=== PATIENT | male | born 1945 | race African-American/Black ===

== ENCOUNTER 2020-06-17 15:21 | Inpatient (IN) | payer OTHER ==
[~2020-06-17] VITALS: Ht 175.3 cm; Wt 108.9 kg
[~2020-06-17 15:21] MED LIST: AMLODIPINE BESY10 MG PO; CARBIDOPA-LEVO1 EAC1 PO; COZAAR 50 MG TA50 MG PO; FLEXERIL PO; FUROSEMIDE 20 M20 M1 PO; HYTRIN 2MG CAPSU2 M1 PO; IBUPROFEN 800800 MG PO; NORCO 5-325 TA1 EACH PO; OMEPRAZOLE 20 M20 MG PO
[2020-06-17 15:22] VITALS: BP 129/100
[2020-06-17 15:41] LABS: ABSOLUTE NEUTROPHILS 3.2 thou/uL (1.4-8.2); BASOPHILS 1.2 % (0.0-2.0); EOSINOPHILS 2.3 % (0.0-3.0); HEMATOCRIT 43.4 % (42.0-52.0); HEMOGLOBIN 14.2 gm/dL (14.0-18.0); LYMPHOCYTES 34.4 % (24.0-44.0); MCH 29.5 pg (26.0-34.0); MCHC 32.7 g/dL (28.0-37.0); MCV 90.4 fL (80.0-100.0); MONOCYTES 10.8 % (1.0-8.0); PLATELET COUNT 254 thou/uL (150-400); POLYS 51.3 % (36.0-66.0); RDW 15.9 % (10.5-14.5); WBC 6.2 thou/uL (4.0-11.0)
[2020-06-17 15:50] LABS: CALCIUM 9.3 mg/dL (8.5-10.1); POTASSIUM 3.1 mmol/L (3.5-5.1)
[2020-06-17 15:56] LABS: ALBUMIN 3.7 g/dL (3.4-5.0); PROTIME 10.4 Seconds (9.3-11.4); TOTAL BILIRUBIN 0.8 mg/dL (0.2-1.0); TOTAL PROTEIN 7.8 g/dL (6.4-8.2)
[2020-06-17] MEDS ORDERED: ADULT ASPIRIN R81 MG PO (15:58)
[2020-06-17] MEDS ORDERED: WARFARIN SODIUM3 MG PO (15:59)
--- NOTE | 2020-06-17 16:25 | NUR ---
ADDISON (SON) PHONE # [phone]
[2020-06-17 20:39] VITALS: BP 125/84
--- NOTE | 2020-06-17 20:44 | NUR ---
TRIED TO CALL REPORT. NO ANSWER.
--- NOTE | 2020-06-17 20:50 | NUR ---
TRIED TO CALL REPORT. NURSE IS UNAVAILABLE.
[2020-06-17 23:51] LABS: URINE BILIRUBIN NEGATIVE (Negative); URINE BLOOD NEGATIVE (Negative); URINE CLARITY CLEAR; URINE COLOR YELLOW; URINE GLUCOSE-RANDOM* NEGATIVE (Negative); URINE KETONES NEGATIVE (Negative); URINE LEUKOCYTES-REFLEX NEGATIVE (Negative); URINE NITRITE-REFLEX NEGATIVE (Negative); URINE PROTEIN (DIPSTICK) NEGATIVE (Negative); URINE UROBILINOGEN 0.2 E.U./dl (0.2-1.0)
--- NOTE | 2020-06-18 05:14 | NUR ---
PT ARRIVED FROM THE ER. A&OX4. ORIENTED TO THE UNIT. ADMISSION DONE CHARTED. EVENING MEDS GIVEN AND BLOOD SUGAR CHECKED NO COVERAGE. HYDROCODONE GIVEN FOR PAIN. PT WEARS BIPAP AT NIGHT. URINAL AT BEDSIDE. FALL PREC IN PLACE AND CALL LIGHT IN REACH WILL CONT WITH POC TILL EOS.
[2020-06-18 06:17] LABS: HEMATOCRIT 41.6 % (42.0-52.0); HEMOGLOBIN 13.4 gm/dL (14.0-18.0); MCH 29.3 pg (26.0-34.0); MCHC 32.2 g/dL (28.0-37.0); MCV 91.1 fL (80.0-100.0); RBC 4.57 mil/uL (4.50-6.00); WBC 6.2 thou/uL (4.0-11.0)
[2020-06-18 06:32] LABS: CALCIUM 8.9 mg/dL (8.5-10.1); CREATININE 0.9 mg/dL (0.7-1.3); MAGNESIUM 2.2 mg/dL (1.8-2.4); POTASSIUM 3.6 mmol/L (3.5-5.1)
[2020-06-18 07:00] VITALS: BP 122/79
[2020-06-18] MEDS ORDERED: ELIQUIS5 MG PO (13:36)
--- NOTE | 2020-06-18 14:04 | NUR ---
ASSESSMENT: CM REVIEWED CHART AND MET WITH PATIENT. PT IS ALERT AND ORIENTED X4. PT IS HERE DUE TO SEVERE BACK PAIN AND ORTHO SURGERY IS CONSULTED. PT REPORTS LIVING IN AN APT ALONE. PT REPORTS HAVING NO STEPS TO ENTER OR ONCE INSIDE. PT REPORTS HE HAS A CANE AND WALKER AT HOME BUT NORMALLY DOES NOT USE THEM. PT REPORTS HE HAS A BIPAP AT HOME HE USES DAILY. PT STATES HE HAS NOT HAD HH IN THE PAST NOR BEEN TO A SNF. CM DISCUSSED ROLE. CM WILL CONTINUE TO FOLLOW TO ASSIST NEEDED.
[2020-06-18 16:00] VITALS: BP 120/88
--- NOTE | 2020-06-18 17:06 | NUR ---
PT IS AOX4, VSS, REPORTS LOWER BACK PAIN THAT RADIATES ON THE RIGHT SIDE OF LEG. PT'S PAIN IS CONTROLLED WITH ORAL AND IV ANALGESIC ORDER. PT HAS BLOOD COMING OUT WHEN HE IS URINATES. DR. TRUONG CALLED AND ORDERED UA. PT CALLS APPROPRIATELY, UP WITH 1 PERSON ASSIST. FALL PRECAUTIONS IN PLACE. BS ARE MONITORED, WILL CONTINUE TO MONITOR.
[2020-06-18 17:11] VITALS: BP 122/79
[2020-06-18 19:10] VITALS: BP 134/94
[2020-06-18 22:58] LABS: URINE BILIRUBIN NEGATIVE (Negative); URINE BLOOD 2+ (Negative); URINE CLARITY CLEAR; URINE COLOR YELLOW; URINE GLUCOSE-RANDOM* NEGATIVE (Negative); URINE KETONES TRACE (Negative); URINE LEUKOCYTES NEGATIVE (Negative); URINE NITRITE NEGATIVE (Negative); URINE PROTEIN (DIPSTICK) NEGATIVE (Negative); URINE SPECIFIC GRAVITY >= 1.030 (1.005-1.035); URINE UROBILINOGEN 0.2 E.U./dl (0.2-1.0)
[2020-06-18 23:21] LABS: BACTERIA 1-9 Few /HPF (None Seen); CASTS None Seen /LPF (None Seen); CRYSTALS None Seen /LPF (None Seen); MUCUS 4-6 Moderate strn/LPF (None Seen); SQUAMOUS 4-10 Moderate /LPF (0-3); URINE WBC 0-5 Rare /HPF (0-5)
[2020-06-19 01:06] LABS: GLYCOHEMOGLOBIN (HGB A1C) 5.7 % (4.8-5.6)
--- NOTE | 2020-06-19 02:18 | NUR ---
ASSESSED AT START OF SHIFT 1900. PT A&OX4. C/O PAIN MANAGE WITH IV AND PO MEDS SEE EMAR. IV INTACT. UA SPECIMEN COLLECTED. URINAL AT BEDSIDE. CPAP AT NIGHT. FALL PREC IN PLACE AND CALL LIGHT AT REACH WILL CONT TO MONITOR.
[2020-06-19 03:28] VITALS: BP 133/101
[2020-06-19 10:25] VITALS: BP 153/92
--- NOTE | 2020-06-19 14:05 | NUR ---
on-going assessment: cm reviewed chart and spoke WITH PT. PT WAS TRYING TO AVOID SURGERY BTU STATES HE HAD A HARD TIME MOVING WITH PHYSICAL THERAPY AND IS NOW CONTEMPLATING SURGERY AND WANTS TO DISCUSS WITH HIS FAMILY. CM WILL AWAIT FOR FUTHER PLANS.
[2020-06-19 14:42] VITALS: BP 153/92
--- NOTE | 2020-06-19 14:45 | NUR ---
PT IS AOX4, VSS, UP WITH ASSIST, UNABLE TO WORK WITH PHYSICAL THERAPY THIS AM D/T PAIN. PT CALLS APPROPRIATELY. PT RECEIVED PO AND IV PAIN ANALGESIC ORDERED FOR PAIN. URINAL AND CALL LIGHT IN REACH. WILL CONTINUE TO MONITOR.
[2020-06-19 16:30] VITALS: BP 113/80
[2020-06-19 19:49] VITALS: BP 128/90
--- NOTE | 2020-06-20 02:41 | NUR ---
ASSESSED AT START OF SHIFT. PT A&OX4. C/O PAIN MANAGED WITH PO AND IV PAIN MEDS. UP WITH ASSIST TO THE BATHROOM URINAL AT BEDSIDE. NEW IV 22G INSERTED IN LEFT HAND. CPAP AT NIGHT. FALL PREC IN PLACE AND CALL LIGHT IN REACH WILL CONT TO MONITOR.
[2020-06-20 03:51] VITALS: BP 116/96
[2020-06-20 07:10] VITALS: BP 120/74
--- NOTE | 2020-06-20 11:12 | NUR ---
REQUESTING PAIN MEDICATION Q 4 HOURS ALTERNATING BETWEEN MORHINE IV AND NEW ORDER FOR [id number]/325 PO PRN WITH VERBALIZED FAIR RELIEF.APPETITE GOOD. USING URINAL PER SELF. LUNGS CTA. BS X4
--- NOTE | 2020-06-20 14:57 | NUR ---
ON-GOING ASSESSMENT: CM REVIEWED CHART AND SPOKE WITH PT. PT REPORTS HE IS STILL IN PAIN AND POSSIBLY CONSIDERING IF HE WANTS TO DO THE SURGERY AND REPORTS HE IS TO TELL THE PHYSICIAN HIS DECISION TOMORROW. CM DISCUSSED IF PT DOES NOT WANT TO PROCEED WITH SURGERY IF HE HAS ENOUGH SUPPORT AT HOME TO HELP ASSIST HIM. HE REPORTS HE MOVES SLOW DUE TO THE PAIN BUT WILL BE FINE. PT LIVES ALONE BUT HAS A CANE A WALKER. HIS SON ADDISON IS ABLE TO RUN [employer] AND BRING MEALS IF NEEDED. CM SPOKE WITH PTS SON TO CONFIRM. CM WILL CONTINUE TO FOLLOW. POSSIBLE DISCHARGE OVER THE WEEKEND PENDING IF PT DECIDES TO PROCEED WITH SURGERY OR NOT. CM WILL CONTINUE TO FOLLOW.
[2020-06-20 16:00] VITALS: BP 121/77
--- NOTE | 2020-06-20 17:43 | NUR ---
EATING WELL 100 PERCENT OF MEALS AND ASKING FOR DOUBLE PORTIONS. BLOOD SUGAR AC MEALS AND IS 162 PRIOR TO PM MEAL-PT STATING "I GUESS NO MORE OJ FOR ME" FULL RANGE AFFECT-TALKATIVE WITH NURSING STAFF. USING URINAL. HAS REMAINED IN BED THROUGHOUT SHIFT-DID WORK BRIEFLY WITH PT.
[2020-06-20 19:10] VITALS: BP 124/71
--- NOTE | 2020-06-21 01:57 | NUR ---
ASSUMED PT CARE AT 1914. PT IS A&OX4. VSS. PT IS ON RA. ACHS - 134 @1913. NO INSULIN WAS GIVEN. PT STATES THAT HE DOES NOT NEED ANYTHING FOR PAIN. PT IS ASLEEP IN HIS ROOM. PT SLEEPING WITH BIPAP ON. DOING HOURLY ROUNDING. WILL CONTINUE TO MONITOR.
[2020-06-21 03:30] VITALS: BP 120/69
[2020-06-21 09:00] VITALS: BP 117/81
--- NOTE | 2020-06-21 14:28 | NUR ---
Assumed care of pt. at 0700. Pt. is calm and cooperative. Pt. complained of moderate pain in his back and was given PRN pain medication. Fall precautions in place.
[2020-06-21 17:30] VITALS: BP 114/70
[2020-06-21 20:35] VITALS: BP 122/70
--- NOTE | 2020-06-22 04:31 | NUR ---
PT LYING IN BED. DENIES NEED FOR PAIN MEDICINE. VOIDING PER URINAL. RESTING COMFORTABLY. NO NEEDS VOICED. CALL LIGHT WITHIN REACH. FREQUENT OBSERVATION.
[2020-06-22 05:14] VITALS: BP 131/82
[2020-06-22 07:00] VITALS: BP 131/85
[2020-06-22] MEDS ORDERED: FLEXERIL PO (07:33)
[2020-06-22] MEDS ORDERED: PERCOCET 10-321 EACH PO (07:34)
[2020-06-22 11:16] VITALS: BP 131/85
--- NOTE | 2020-06-22 14:07 | NUR ---
PT ASSESSED AT START OF SHIFT. DR. TRUONG IN EARLY TO DISCHARGE PT. PLAN TO GO HOME TODAY AND RETURN FOR BACK SURGERY ON TUESDAY. MOVING SOME BETTER BUT STILL HAVING PAIN. WAITING FOR RIDE HOME AT PRESENT TIME.
== END 2020-06-22 16:30 | disposition home or self-care (01) | DRG 552 ==
LOC: ER 15:21 → EROBS 20:21 → 4S 20:21
PROVIDERS: Nurse Practitioner Family; Physician Assistant; ADMIT Internal Medicine; ATTEND Internal Medicine
PROC: 5A09557 Assistance with Respiratory Ventilation, Greater than 96 Consecutive Hours, Continuous Positive Airway Pressure (ICD-10-PCS; principal; 2020-06-17)
DX: M48.061 Spinal stenosis, lumbar region without neurogenic claudication (principal); I48.91 Unspecified atrial fibrillation; I11.0 Hypertensive heart disease with heart failure; I50.9 Heart failure, unspecified; G47.33 Obstructive sleep apnea (adult) (pediatric); E11.9 Type 2 diabetes mellitus without complications; G89.29 Other chronic pain; F32.9 Major depressive disorder, single episode, unspecified; M51.16 Intervertebral disc disorders with radiculopathy, lumbar region; M54.5 Low back pain; K21.9 Gastro-esophageal reflux disease without esophagitis; N40.0 Benign prostatic hyperplasia without lower urinary tract symptoms; Z90.49 Acquired absence of other specified parts of digestive tract; Z88.8 Allergy status to other drugs, medicaments and biological substances; Z79.01 Long term (current) use of anticoagulants; Z79.82 Long term (current) use of aspirin; Z79.899 Other long term (current) drug therapy; Z86.718 Personal history of other venous thrombosis and embolism; Z86.711 Personal history of pulmonary embolism
CPT/HCPCS: 10195

== ENCOUNTER 2020-06-24 14:06 | Inpatient (IN) | payer OTHER ==
[~2020-06-24] VITALS: Ht 175.3 cm; Wt 104.3 kg
--- NOTE | ~2020-06-24 | EMS ---
[facility] [address] [place] [address] EMS Patient Care Report Name: JAIRO GALINDO Room #: 170-24 ADM IN M.R.#: [id number] Admission: 06/24/20 Attend Phys: Rancho Anderson MD Discharge: Date of : 47 Report #: [id number] THIS REPORT FOR: //name// Report Transmitted: 06/24/2020 15:32 EMS Care Summary [place], [place]/[facility] Incident [id number] @ 06/24/2020 13:30 Incident Location [address] [place], [place] [id number] Patient JAIRO GALINDO Male, 74 Years 1945 Patient Address [address] [place] [address] Patient History Back Pain (Chronic), Patient Allergies Lisinopril,Gabapentin, Patient Medications Coumadin, Chief Complaint My sciatica is hurting Disposition Transported No Lights/[place] Reason Falls Transported To [facility] Narrative Called to the scene for a fall. Upon arrival, pt was ZAVALA x 3, lying on the floor on his left side. He said he assisted himself to the ground c/o pain to [facility] [address] [place] [address] EMS Patient Care Report Name: JAIRO GALINDO Room #: 170-24 ADM IN M.R.#: [id number] Admission: 06/24/20 Attend Phys: Rancho Anderson MD Discharge: Date of : 47 Report #: [id number] the right sciatica area. He said he is scheduled for surgery soon. He requests transport to [facility] ER for further eval & tx because he is unable to get around at home well enough to take care of himself. He was assisted to the EMS cot and loaded into the ambulance w/o incident. Vitals obtained. En route: no significant changes. RR to ER. Arrived: pt taken to ER HW #1 and moved to their bed w/o incident. Pt care & report to ER staff. Initial Vitals @13:46P: 75,R: 16,BP: 105/70,Pain: 10/10,GCS: 15,SpO2: 100,Revised Trauma: 12, Assessments @13:55MENTAL:Person Oriented,Time Oriented,Place Oriented,Event Oriented,SKIN:HEENT:LUNG SOUNDS:ABDOMEN:PELVIS//GI:Pelvis GUOther,SHAMIKA,EXTREMITIES:Right Leg: Other,Left Arm: No Abnormalities,Right Arm: No Abnormalities,Left Leg: No Abnormalities,PULSE:Radial: 2+ Normal,NEURO:No Abnormalities, Impression Extremity Pain Procedures @13:58ALS AssessmentResponse: UnchangedSucceeded@13:58StretcherResponse: Unchanged Timeline 13:28,Call Received 13:28,Dispatch Notified 13:30,Dispatched 13:30,En Route 13:36,On Scene 13:37,At Patient 13:46,BP: 105/70 M,PULSE: 75,RR: 16 R,SPO2: 100 Ox,ETCO2: ,BG: ,PAIN: 10,GCS: 15, 13:50,Depart Scene 13:58,ALS Assessment,Response: UnchangedSucceeded, 13:58,Stretcher,Response: Unchanged 14:03,At Destination 14:38,Call Closed Disclaimer v1.1 Copyright 2020 [employer] This EMS Care Summary contains data elements from the applicable legal record (which may be displayed differently). It is designed to provide pertinent information for the following purposes: continuity of care, clinical quality, and state data reporting. The complete legal record is available to ED staff and administrators of the receiving hospital in [employer] Patient Tracker. All data [facility] [address] [place] [address] EMS Patient Care Report Name: JAIRO GALINDO Room #: 170-24 ADM IN M.R.#: [id number] Admission: 06/24/20 Attend Phys: Rancho Anderson MD Discharge: Date of : 47 Report #: [id number] is provided "as is."
[~2020-06-24 14:06] MED LIST changes: +ADULT ASPIRIN R81 MG PO; +ELIQUIS5 MG PO; +PERCOCET 10-321 EACH PO; +WARFARIN SODIUM3 MG PO
[2020-06-24 14:15] VITALS: BP 123/85
[2020-06-24 14:48] LABS: HEMATOCRIT 42.3 % (42.0-52.0); HEMOGLOBIN 13.9 gm/dL (14.0-18.0); MCH 29.8 pg (26.0-34.0); MCHC 32.9 g/dL (28.0-37.0); MCV 90.4 fL (80.0-100.0); RBC 4.69 mil/uL (4.50-6.00); RDW 15.6 % (10.5-14.5); WBC 9.5 thou/uL (4.0-11.0)
[2020-06-24 14:57] LABS: CREATININE 1.1 mg/dL (0.7-1.3); POTASSIUM 3.5 mmol/L (3.5-5.1)
[2020-06-24 15:06] LABS: CALCIUM 8.6 mg/dL (8.5-10.1)
[2020-06-24 17:08] VITALS: BP 123/85
--- NOTE | 2020-06-24 18:07 | NUR ---
PT REPORTED HANDING BLACK JACKET & BLACK BAG TO EMS. BELONGINGS NOT WITH PT ON ARRIVAL. CALLED [facility] REGARDING PT BELONGINGS. [facility] REPORTS THAT PT BELONGINGS WERE LEFT INSIDE PT APARTMENT AND NOT BROUGHT TO HOSPITAL
[2020-06-24 18:44] VITALS: BP 114/73
[2020-06-24 19:27] VITALS: BP 96/68
--- NOTE | 2020-06-24 20:15 | NUR ---
PATIENT ARRIVED ON UNIT ROOM 443 AT 17:38. ALERT XS 4 NO PAIN OR RESP DISTRESS, V.S. 98.2 16 74 114/73 O2 SAT= 98%RA. HAS SURGERY TOMMOROW NPO AT MIDNIGHT. DID ADMISSION HISTORY ASSESSMENT AND ADMISSION EDUCATION NOC SHIFT TO DO SYSTEM ASSESSMENT. DINNER ORDERED AND NPO AT MIDNIGHT. PT PLEASANT AND COOPERATIVE WITH CARE.
[2020-06-25 04:15] VITALS: BP 109/61
--- NOTE | 2020-06-25 05:12 | NUR ---
Assumed pt care at 1900. A/OX4,pleasant. VSS. C/o pain to back/RLE especially with movement medicated per EMAR with some relief reported. Pt reports he's normally independent with ambulation at home w cane/RW but not able to do so recently d/t pain and has fallen frequently. Fall precautions in place, pt agrees to call for help as needed. Voiding per urinal at night. PIV patent on right hand saline locked. Pt has been NPO since midnight. CPAP ordered for pt and in place at this time. Resting quietly w/o distress noted will continue to monitor pt.
[2020-06-25 05:41] LABS: HEMATOCRIT 40.8 % (42.0-52.0); HEMOGLOBIN 13.6 gm/dL (14.0-18.0); MCH 30.3 pg (26.0-34.0); MCHC 33.3 g/dL (28.0-37.0); MCV 90.9 fL (80.0-100.0); RBC 4.48 mil/uL (4.50-6.00); RDW 15.9 % (10.5-14.5); WBC 8.1 thou/uL (4.0-11.0)
[2020-06-25 05:53] LABS: CALCIUM 8.7 mg/dL (8.5-10.1); MAGNESIUM 2.2 mg/dL (1.8-2.4); POTASSIUM 3.6 mmol/L (3.5-5.1)
[2020-06-25 07:07] VITALS: BP 106/74
--- NOTE | 2020-06-25 07:51 | EKG ---
[facility] [place] [address] ELECTROCARDIOGRAM REPORT Name: JAIRO GALINDO Room #: 443- ADM IN M.R.#: [id number] Admission: 06/24/20 Attend Phys: Rancho Anderson MD Discharge: Date of : 47 Report #: [id number] THIS REPORT FOR: cc: [facility] - Clinic physician unknown [facility] - Clinic physician unknown Watson Hammonds MD [facility] ~ THIS REPORT FOR: //name// [facility] ED Test Date: 2020-06-24 Test Time: 16:24:22 Pat Name: JAIRO GALINDO Department: Room: [facility] Gender: M Size Roller Operator: ANNI : 1945 Requested By: Monica Fry Order Number: [id number] MD: Watson Hammonds Measurements Intervals [place] Rate: 65 P: 73 VT: 272 QRS: -27 QRSD: 100 T: -21 QT: 398 QTc: 414 Interpretive Statements Sinus rhythm Prolonged VT interval Borderline left axis deviation Borderline T abnormalities, inferior leads Baseline wander in lead(s) V2 No previous ECG available for comparison Electronically Signed On 06-25-2020 7:51:26 [employer] AIDE TEACHER by Watson Hammonds [email or web address] <ELECTRONICALLY SIGNED> By: Watson Hammonds MD, [facility] 06/25/20 0751 1624 1624 Watson Hammonds MD, [facility] /EPI
--- NOTE | 2020-06-25 07:53 | NUR ---
Pt UNDERGOING SURGERY TODAY; THEREFORE, NEED NEW O.T. ORDERS POST-OP.
--- NOTE | 2020-06-25 08:54 | NUR ---
ASSESSMENT: CM REVIEWED CHART AND SPOKE WITH PATIENT. PT IS ALERT AND ORIENTED X4. PT REPORTS LIVING IN AN APT ALONE. PT HAS NO STEPS TO ENTER OR ONCE INSIDE. PT REPORTS HE HAS A CANE AND WALKER AT HOME WELL A BATH BENCH. PT REPORTS THAT HE HAS NOT HAD HH IN THE PAST OR BEEN TO A SNF. PT REPORTS HE HAS SOME FAMILY/FRIENDS THAT CAN ASSIST HIM IF NEEDED. PT IS TO HAVE SURGERY AND PENDING PT/OT CM WILL ASSIST TO FOLLOW.
--- NOTE | 2020-06-25 09:58 | NUR ---
PT CARE ASSUMED AT 0700. A&Ox4. ACHS WITH NO COVERAGE NEEDED THIS AM. NPO SINCE MIDNIGHT. NO EDEMA PRESENT AT ASSESSMENT ON L. R. EXTREMITY. SCD'S IN PLACE. HOSPITAL BIPAP AT BEDSITE. PT USES URINAL. IV PATENT, FLUSHED, WITH NO REDNESS OR EDEMA, SALINE LOCKED. MORNING MEDICATIONS HELD PER NPO PROTOCOL. PT LEFT FLOOR AT [address] [facility]. PREOP REPORT GIVEN. FALL PROTOCOL IN PLACE. CALL LIGHT IN REACH. WILL CONTINUE TO MONITOR. CLOTHES, GLASSES, WALLET IN NIGHTSTAND WHILE OFF THE FLOOR.
[2020-06-25 15:39] VITALS: BP 106/74
[2020-06-25 20:34] VITALS: BP 110/73
--- NOTE | 2020-06-26 02:11 | NUR ---
ASSUMED PT CARE AT 1900.PT AXO WITH FORGETFULNESS.PT DENIED N/V SO FAR. PT OBSERVED NOT TO BE USING HIS OPERATIONS TECH PUMP FOR HIS PAIN RATES PAIN AT 8.PT EDUCATED ON HOW TO USE HIS OPERATIONS TECH PUMP.HOURLY ROUNDING MAINTAINED. PT STATED THAT THE OPERATIONS TECH PUMP IS PROVIDING ADEQUATE PAIN RELIEF DURING FERQ CHECK.DRSG ON HIS BACK INTACT.PT SLEEPIN WITH HIS CPAP AT THIS TIME.CAPNOGRAPHY IN PLACE DUE TO OPERATIONS TECH PUMP USE.SCD/SRINI IN PLACE.PT SLEEPING COMFORTABLY ON HIS BED AT THIS TIME.PT ABLE TO REPOSITION SELF TO COMFORTABLE POSITIONS.CALL LIGHT WITHIN REACH.
[2020-06-26 05:31] VITALS: BP 101/66
[2020-06-26 05:33] LABS: ABSOLUTE NEUTROPHILS 10.7 thou/uL (1.4-8.2); BASOPHILS 0.4 % (0.0-2.0); HEMATOCRIT 39.9 % (42.0-52.0); HEMOGLOBIN 12.9 gm/dL (14.0-18.0); MCH 29.5 pg (26.0-34.0); MCHC 32.5 g/dL (28.0-37.0); MCV 90.8 fL (80.0-100.0); MONOCYTES 5.5 % (1.0-8.0); PLATELET COUNT 261 thou/uL (150-400); POLYS 86.1 % (36.0-66.0); RBC 4.39 mil/uL (4.50-6.00); WBC 12.4 thou/uL (4.0-11.0)
[2020-06-26 05:48] LABS: CALCIUM 8.9 mg/dL (8.5-10.1); CREATININE 1.1 mg/dL (0.7-1.3); POTASSIUM 4.2 mmol/L (3.5-5.1)
[2020-06-26 07:13] VITALS: BP 119/81
--- NOTE | 2020-06-26 09:49 | NUR ---
PT CARE ASSUMED AT 0700. A&Ox4. PAIN CONTINUES TO HAVE PAIN AT A PAIN LEVEL 9 WITH NO RELIEF. CARTER INFORMED. AWAITNG FURHTER ORDERS. IV PATENT WITH NO REDNESS OR EDEMA, SALINE LOCKED. ACHS WITH NO COVERAGE NEEDED. SLEEP APNEA WITH HOSPITAL CPAP IN THE ROOM. KNEE HIGH SRINI HOSES/ SCD'S IN PLACE. URINAL AT BEDSITE. FALL PROTOCOL IN PLACE. CALL LIGHT IN REACH. SURGERY SITE DRESSING DRY AND INTACT. WILL CONTINUE TO MONITOR.
[2020-06-26] MEDS ORDERED: ELIQUIS5 MG PO (13:54)
[2020-06-26] MEDS ORDERED: METFORMIN HCL500 MG PO (13:55)
[2020-06-26] MEDS ORDERED: LIPITOR 40 MG T40 M1 PO (13:55)
[2020-06-26] MEDS ORDERED: LYRICA100 MG PO (13:56)
[2020-06-26] MEDS ORDERED: DITROPAN XL10 M1 PO (13:56)
[2020-06-26] MEDS ORDERED: ZANAFLEX4 M2 PO (13:57)
--- NOTE | 2020-06-26 14:07 | NUR ---
ON-GOING ASSESSMENT: CM REVIEWED CHART AND SPOKE WITH BEDSIDE RN. PT IS STILL HAVING SEVERE PAIN REQUIRING IV MEDICATION. PT IS CONTUING TO WORK WITH THERAPIES. PT IS HOPING HE WILL BE ABLE TO RETURN HOME DUE PENDING DUE TO HIS PAIN. CM DISCUSSED CM CAN SEND REFERRAL FOR HH FOR PATIENT BUT HE STATES HE WANTS TO WAIT TO SEE HOW HE DOES WHEN HE IS CLOSER TO DISCHARGE. CM WILL CONTINUE TO FOLLOW TO ASSIST NEEDED.
--- NOTE | 2020-06-26 15:05 | O ---
[facility] [place] [address] OPERATIVE REPORT Name: JAIRO GALINDO Room #: 443-P ADM IN M.R.#: [id number] Admission: 06/24/20 Attend Phys: Rancho Anderson MD Discharge: Date of : 47 Report #: [id number] THIS REPORT FOR: cc: [facility] - Clinic physician unknown [facility] - Clinic physician unknown Josh Boykin MD ~ CC: [facility] unknown Rancho Anderson DATE OF SERVICE: 06/25/2020 PREPROCEDURAL DIAGNOSES: Intraforaminal far lateral and paracentral disk herniation L5-S1. Radiculopathy. POSTPROCEDURAL DIAGNOSES: Intraforaminal far lateral and paracentral disk herniation L5-S1. Radiculopathy. PROCEDURE: Right paracentral intracanal HNP excision and right L4-L5 far lateral disk excision. SURGEON: Josh Boykin M.D. LEAN MANUFACTURING COORDINATOR SURGEON: Kalina Orozco. ANESTHESIA: General via endotracheal tube. INDICATIONS: The patient has had intractable back and right leg pain. He is known to have a large intraforaminal disk herniation with far lateral component and the patient was scheduled for both an intracanal approach and an extrapedicular approach to try and clear his foramen. The patient understood the risks of surgery to be , DVT, pulmonary embolism, paraplegia, loss of bowel and bladder function, loss of sexual function, possibility of bleeding, bleeding requiring transfusion, transfusion attendant risks of AIDS and hepatitis infection, instability, the need for revision, prolonged hospital stay, dural leak, spinal headache, infection and again he requested we proceed. DESCRIPTION OF PROCEDURE: The patient was brought to the operating room, administered general anesthesia via endotracheal tube. Lower extremities were treated with SRINI hose and intermittent compression stockings. He received perioperative antibiotics. He was positioned on the Alvaro table in the prone position with all bony prominences padded appropriately. Care was taken to ensure the shoulders not abducted more than 90 degrees, the elbows flexed more than 90 degrees and there was no undue pressure on the cubital or carpal canals. The patient's incision was fashioned after being fluoroed. We defatted the back with alcohol, visualized under fluoroscopy and marked the pedicles of the inferior aspect of L4 to the superior aspect of S1, noting that the patient has [address] [address] OPERATIVE REPORT Name: JAIRO GALINDO Room #: 443-P [facility] IN .R.#: [id number] Admission: 06/24/20 Attend Phys: Rancho Anderson MD Discharge: Date of : 47 Report #: [id number] transitional vertebrae. We then began by attempting to enter his canal after a subperiosteal exposure in setting of our retractors. There was so much overgrowth and deformity of the affected facet on the right that it actually extended from the transverse process of the vertebrae below to the transverse process of the vertebrae above. It was overgrown. It was probably 2-2.5 times the normal size of the facet and making the procedure extremely difficult. There was no remnant or even ability to visualize what would have been normal pars or normal intersection of the transverse process and due to the patient's size, the depths of the wound was extraordinarily. The intracanal approach had take down the midline to be able to enter the canal and remove the thickened ligamentum flavum from the right side. We traced this out until we were lateral to the nerve root and then we were able to perform the diskectomy and performed medial portion intraforaminal decompression using the upbiting pituitary from across the table. We then palpated and tried to push any disk into the disk space and then moved. When this was complete and there was no further disk being removed from intracanal, moved for the extraforaminal approach. With the extraforaminal approach, we took down probably half of the facet. If I took it down anymore, it would make it unstable and I think it barely got me to the normal pars. Again, it was so distorted from arthritic change and facet hypertrophy and degenerative adaptive change, it was difficult to tell any normal landmarks. I did take down the facet and then removed bone until I could palpate the pedicle and then dissected through the fat and found the nerve root and then went to where I believe the disk would be and found rimming osteophytes. We were able to decompress the root in its course, but honestly was unclear whether due to the width and size of the patient's lamina, unclear whether I removed all the intraforaminal component of disk material. The patient not wanting to manipulate the nerve root anymore, unable to take down any more facet without making him unstable and needing a fusion, we stopped and we are going to see if this provided him adequate relief. If not, the patient would be later scheduled for a decompression or complete excision of the facet and fusion. The patient tolerated this portion of the procedure well. We copiously irrigated with a liter of antibiotic-containing solution, placed a mL of Depo-Medrol on the nerve root and a pledget of thrombin-soaked Gelfoam laterally and a fat graft medially. Bone edges were bone waxed and we closed the deep fascial layer with 0 Ethibond in [id number] interrupted fashion after a thorough irrigation with a liter of antibiotic-containing solution and then closed the deep fascial layer with 0 Ethibond in [id number] and then the deep subcu with 0 Vicryl, superficial subcu 2-0 Vicryl and the skin with stainless steel floyd, dressed with Xeroform, sterile dressing, sponges and a bioclusive. The patient tolerated the procedure well, no technical [facility] [address] [place] [address] OPERATIVE REPORT Name: JAIRO GALINDO Room #: 443-P [facility] IN ..#: [id number] Admission: 06/24/20 Attend Phys: Rancho Anderson MD Discharge: Date of : 47 Report #: [id number] misadventures and other than the challenges from the extraordinary overgrowth and deformity, there were no other issues. <ELECTRONICALLY SIGNED> By: Josh Boykin MD 06/26/20 1505 1353 1433 Josh Boykin MD /nt
[2020-06-26 15:51] VITALS: BP 95/42
[2020-06-26 19:28] VITALS: BP 90/57
[2020-06-26 23:41] VITALS: BP 114/71
[2020-06-27] VITALS (13 sets, daily range): BP systolic 102–131; BP diastolic 57–87
[2020-06-27 05:06] LABS: ABSOLUTE NEUTROPHILS 6.3 thou/uL (1.4-8.2); BASOPHILS 0.9 % (0.0-2.0); EOSINOPHILS 1.9 % (0.0-3.0); HEMATOCRIT 39.4 % (42.0-52.0); HEMOGLOBIN 12.9 gm/dL (14.0-18.0); LYMPHOCYTES 19.6 % (24.0-44.0); MCH 29.9 pg (26.0-34.0); MCHC 32.7 g/dL (28.0-37.0); MCV 91.7 fL (80.0-100.0); MONOCYTES 7.5 % (1.0-8.0); PLATELET COUNT 212 thou/uL (150-400); POLYS 70.1 % (36.0-66.0); RDW 16.5 % (10.5-14.5)
[2020-06-27 06:04] LABS: CREATININE 1.2 mg/dL (0.7-1.3)
--- NOTE | 2020-06-27 07:00 | NUR ---
PATIENT IS HAVING A LUMBAR FUSION TODAY, WILL NEED POST OP ORDERS.
--- NOTE | 2020-06-27 07:14 | NUR ---
ASSUMED PT CARE AROUND 1930. AXOX3. ANXIOUS. LOW BP REPORTED TO AERIAL INSTALLER PROVIDER CONTRACTING CONSULTANT WITH NNO AT THIS TIME. KEPT NPO POST [place] FOR SURGERY IN AM. LEFT AROUND 0620 ACCOMPANIED BY CORRECTIONAL GUARD. NO S/S ACUTE DISTRESS NOTED OR REPORTED UPON DEPARTURE. VERBAL REPORT GIVEN TO DAY RN.
--- NOTE | 2020-06-27 13:49 | O ---
[facility] [place] [address] OPERATIVE REPORT Name: JAIRO GALINDO Room #: 443-P ADM IN M.R.#: [id number] Admission: 06/24/20 Attend Phys: Rancho Anderson MD Discharge: Date of : 47 Report #: [id number] THIS REPORT FOR: cc: [facility] physician unknown [facility] physician unknown Josh Boykin MD ~ CC: [facility] unknown Rancho Anderson DATE OF SERVICE: 06/27/2020 PREPROCEDURAL DIAGNOSES: Spondylolisthesis, L4-L5; zftwrfam-[id number] neural foraminal stenosis, L4-L5; herniated disk, L5-S1, right paracentral; herniated disk, right L5-S1, intraforaminal; herniated disk, right L5-S1 far lateral. POSTPROCEDURAL DIAGNOSES: Spondylolisthesis, L4-L5; efuqxyvw-rn-flepru neural foraminal stenosis, L4-L5; herniated disk, L5-S1, right paracentral; herniated disk, right L5-S1, intraforaminal; herniated disk, right L5-S1 far lateral. PROCEDURES: 1. Posterior segmental instrumentation, L4-S1. 2. Posterior posterolateral fusion, L4-L5. 3. Posterior posterolateral fusion, L5-S1. 4. Laminectomy with partial facetectomy and neural foraminotomy, L4; laminectomy with partial facetectomy and neural foraminotomy, L5; laminectomy with partial facetectomy and neural foraminotomy, S1; far lateral extrapedicular approach, L5-S1 for herniated disk; complete takedown of the lamina on the right at L5-S1 to allow complete exposure of the L5 nerve root and removal of intraforaminal disk herniation; paracentral right L5-S1 diskectomy for impingement on the S1 nerve root. Local bone, fluoroscopy, synthetic bone. SURGEON: Josh Boykin M.D. DIRECTOR OF PUBLIC SAFETY SURGEON: GABBY Elias ANESTHESIA: General via endotracheal tube. INDICATIONS: The patient has had intractable back and right leg pain. The leg pain is in a multi root distribution affecting the lower extremity. He states he is fine as long as he does not move. The patient has had a previous attempted decompression with paracentral and far lateral approach that was unsuccessful. The patient was scheduled for the aforementioned surgery after having returned from surgery with the same leg pain. The patient understood the risks of surgery to be , DVT, pulmonary embolism, paraplegia, loss of bowel and bladder function, loss of sexual function, possibility of bleeding, bleeding requiring transfusion, transfusion attendant risks of AIDS and hepatitis [address] [address] OPERATIVE REPORT Name: JAIRO GALINDO Room #: 443-P ADM IN M.R.#: [id number] Admission: 06/24/20 Attend Phys: Rancho Anderson MD Discharge: Date of : 47 Report #: [id number] infection, instability, the need for revision, prolonged hospital stay, dural leak, spinal headache, infection and again he requested we proceed. DESCRIPTION OF PROCEDURE: The patient was brought to the operating room and administered general anesthesia via endotracheal tube. Lower extremities were treated with SRINI hose and intermittent compression stockings. The patient received perioperative antibiotic. He was positioned on the Alvaro table after having a Pisano placed. The patient was positioned in the prone position with all bony prominences padded appropriately. Care was taken to ensure the shoulders not abducted more than 90 degrees, the elbows flexed more than 90 degrees. There was no undue pressure on the cubital or carpal canals. The area of the anterior superior iliac spine was well padded to protect the lateral femoral cutaneous nerve. Hips and knees were well padded and there was no pressure on the dorsum of the feet. The patient's low back was defatted with alcohol, visualized under fluoroscopy and the pedicles of L4, L5 and S1 were marked on the patient's back for surgical reference. The previous incision was used with the extension cephalad to allow instrumentation at the L4 unstable spondylolisthetic level. The skin after sterile prep and drape was infiltrated with 0.5% Marcaine, 1:200,000 epinephrine. The incision was made, carried down to deep fascia. At the level of deep fascia, the permanent sutures were removed. The incision was extended to allow instrumentation of L4, L5 and S1. We performed a subperiosteal exposure of the L4, L5 and S1 levels. We maintained the facet capsules at L3-L4. Facet capsules were sacrificed at L4-L5 and L5-S1. We then exposed the transverse processes of L4, L5 and S1, decorticated the base of the transverse process in line with the lateral facet, inserted a pedicle probe, drilled it to a depth of 40 mm in the direction dictated by an x-ray that had been obtained under fluoroscopy in the lateral plane. The clamps had been affixed to the tips of the spinous processes perpendicular to the floor that gave us a relative pedicle direction. We decorticated the base of the transverse process in line with the lateral facet, inserted the pedicle probe, drilled it to a depth of 40 mm, withdrew it, palpated the hole to ensure cortical integrity and when that was assured, bone wax was placed and a metallic marker. This was performed bilaterally at L4, L5 and S1. AP and lateral fluoroscopy confirmed excellent position of our markers within the pedicles. Pedicles were sequentially removed, the holes were tapped. Holes after being tapped were palpated again with a ball tip probe to ensure cortical integrity in all 4 quadrants. Once this was assured, we decorticated posterolaterally and performed a fusion of L4-L5 and L5-S1. This was accomplished with synthetic bone that had been reconstituted with the patient's own vertebral body blood rich in stem cells obtained with a Lukens trap and suction during the pedicle screw hole placement. The synthetic bone placed. We inserted the screws, measured, cut and contoured rods, locked them into place and set the locking caps to appropriate tightness. We moved to the opposite side and performed exactly the same procedure. Tapped the hole, palpated to ensure cortical integrity, decorticated and placed a posterolateral fusion at L4-L5 and L5-S1, inserted the screws, measured, cut and contoured rods, locked [facility] [address] [place] [address] OPERATIVE REPORT Name: JAIRO GALINDO Room #: 443-P [facility] IN .R.#: [id number] Admission: 06/24/20 Attend Phys: Rancho Anderson MD Discharge: Date of : 47 Report #: [id number], set with the torque wrench to appropriate tightness. Final AP and lateral of the instrumentation showed excellent position, a well aligned spine and the appropriate levels were fused. The instrumentation showed all instrumentation to be of appropriate length, trajectory and to be well placed. We then turned our attention to the decompression. We performed laminectomy and total facetectomy, explored the entire lamina of L5, having been removed we were able to follow and trace out the L5 nerve root and found huge amounts of disk material pinning it against the inferior aspect of the L5 pedicle and nerve root was purplish, contused and appeared "angry." Disk material was pushed into the disk space and removed with the pituitary. A Hayley dental elevator was used and a nerve hook was used to deliver the disk material, intraforaminal disk material and a far lateral disk material was removed also. When complete, the nerve root was completely unencumbered throughout the neural foramen and was clearly free beyond the pedicle, which had been the superior articular process of S1, which had been removed. It was completely free in its course. We then checked intracanal and again removed disk material beneath the S1 root where it seemed deviated. When complete, we performed both an intraforaminal far lateral and intracanal disk herniation excision. We then copiously irrigated with a liter of antibiotic-containing solution. We drilled out the facets just prior to the irrigation. We packed them with the patient's own bone representing local bone graft harvest. Bone from the laminectomy had been meticulously cleaned, morcellized and saved and was packed in the inner facet region. Thrombin-soaked Gelfoam was placed over the spinal canal and the naked dura. We placed a transverse connector, torqued it to appropriate tightness, obtained meticulous hemostasis, placed a deep drain, placed a gram of vancomycin in the wound and closed the deep fascial layer with 0 Ethibond in becfos-rx-jmqag interrupted fashion, deep subQ with 0 Vicryl, superficial subQ with 2-0 Vicryl, skin with a subcuticular 3-0. The patient then had benzoin, Steri-Strips, Xeroform, sterile dressing, sponges and a bioclusive applied. The patient tolerated the procedure well. There were no technical misadventures. The final blood loss was 250 mL. I believe the final urine output was 650 mL. There was no specimen. No complications and the patient was physiologically stable throughout being transported to recovery room for closer neurovascular observation, continue prophylactic antibiotic and serial neurovascular exams to be discharged to the floor when stable. <ELECTRONICALLY SIGNED> By: Josh Boykin MD 06/27/20 1349 [id number] Josh Boykin MD /nt
--- NOTE | 2020-06-27 16:44 | NUR ---
assumed care at 1400. pt is a&o x4. pt came to back from surgery and he came in drowsy. pt complains of pain and was taught how to use AIRCRAFT SHIPPING CHECKER pump. Pt is using AIRCRAFT SHIPPING CHECKER pump wisely. Pt is on clear liquids. pt denies n/v. SRINI/ SCD hose are in place. VSS are stable after surgyer. fall precaution. call light within reach. RR is WNL. Will continue to monitor pain. Right and L Hand IV are free of redness or swelling. Pt denies any discomfort.
[2020-06-28 03:30] VITALS: BP 100/64
--- NOTE | 2020-06-28 03:41 | NUR ---
ASSUMED PT CARE AT 1900.PT NEEDS CONSTANT REMINDER TO USE HIS DISABILITIES CAREGIVER PUMP HE WAS OBSERVED MOANING IN HIS ROOM.PT STATED THAT THE DISABILITIES CAREGIVER PUMP US PROVIDING RELIEF.PT DECLINED REPOSITIONING SO FAR STATED THAT HE CAN REPOSITION HIMSELF TO A COMFORTABLE POSITION.DRSG TO HIS BACK INTACT.MIN DRAINAGE NOTED FROM HIS HEMOVAC.SCD AND SRINI HOSE IN PLACE TO HIS BLE.CAPNOGRAPHY IN PLACE.PT ENCOURAGED TO USE HIS IS WHILE AWAKE.PT SLEEPING ON HIS BED AT THIS TIME.CALL LIGHT WITHIN REACH.
[2020-06-28 05:25] LABS: ABSOLUTE NEUTROPHILS 8.1 thou/uL (1.4-8.2); BASOPHILS 0.6 % (0.0-2.0); EOSINOPHILS 0.2 % (0.0-3.0); HEMATOCRIT 37.7 % (42.0-52.0); HEMOGLOBIN 12.5 gm/dL (14.0-18.0); LYMPHOCYTES 14.4 % (24.0-44.0); MCH 30.2 pg (26.0-34.0); MCHC 33.2 g/dL (28.0-37.0); MCV 91.2 fL (80.0-100.0); MONOCYTES 7.8 % (1.0-8.0); PLATELET COUNT 203 thou/uL (150-400); RBC 4.14 mil/uL (4.50-6.00); RDW 16.4 % (10.5-14.5); WBC 10.5 thou/uL (4.0-11.0)
[2020-06-28 05:28] LABS: CALCIUM 8.5 mg/dL (8.5-10.1); CREATININE 1.2 mg/dL (0.7-1.3); POTASSIUM 3.9 mmol/L (3.5-5.1)
[2020-06-28 07:31] VITALS: BP 110/69
--- NOTE | 2020-06-28 12:14 | NUR ---
ASSUMED CARE AT 0700. PT IS MORE ALERT AND ORIENTED X 4. PT IS COMPLAINIG OF PAIN /. MORPHINE WAS GIVEN AROUND 7 AM AND THERE WAS NO PAIN RELIEF. PT WAS GIVEN OXYCODONE 2 TABLETS AND NOTICE A SLIGHT PAIN RELIEF. PT COMPLAINS OF SLIGHT SOA. PT O2 LEVEL IS WITHIN NORMAL RANGE. BOB IS INTACT AND CLEAR URINE. HEMOVAC DRAIN IS INTACT AND BARELY DRAINING, SO MAYBE A POSSIBLE D/C ON HEMOVAC DRAIN. PT BLOOD GLUCOSE IS WNL SO NO INSULIN NEEDED. D/C R. IV ON THE RIGHT HAND DUE TO INFILTRATION. CURRENTLY ONLY USING IV ON THE LEFT HAND AND WORKS FINE. PT WORKED WITH PT/OT. TOLERATE WELL. PT IS STILL CONSTIPATED BUT IT COULD BE DUE TO MEDICATIONS OR AFTER SURGERY. PT UNDERSTOODS. WILL CONTINUE TO MONITOR PT BREATHING AND O2 LEVEL.
[2020-06-28 15:20] VITALS: BP 94/64
[2020-06-28 19:34] VITALS: BP 111/52
--- NOTE | 2020-06-29 02:09 | NUR ---
PT ALERT/CONFUSED AND FORGETFUL.PT'S BED ALARM WENT OFF,ON GETTING TO THE ROOM,PT WAS OBSERVED TRYING TO GET OUT OF BED WITHOUT ASSIST.PT EDUCATED TO USE CALL LIGHT FOR HELP.PT C/O PAIN ON HIS BACK,MANAGED WITH PO AND IV MED.PT RE[OSITINED WHILE IN BED PER HIS REQUEST HE REF MOST OF THE TIME.DRSG ON HIS BACK INTACT WITH MIN DRAINAGE.BOB CATH IN PLACE WITH YELLOW URINE NOTED IN THE BAG.CALL LIGHT WITHIN REACH.HOURLY ROUNDS MAINTAINED.
[2020-06-29 03:44] VITALS: BP 96/52
[2020-06-29 08:04] LABS: ABSOLUTE NEUTROPHILS 9.6 thou/uL (1.4-8.2); BASOPHILS 0.4 % (0.0-2.0); EOSINOPHILS 1.7 % (0.0-3.0); HEMATOCRIT 36.2 % (42.0-52.0); HEMOGLOBIN 11.7 gm/dL (14.0-18.0); LYMPHOCYTES 13.1 % (24.0-44.0); MCH 29.5 pg (26.0-34.0); MCHC 32.4 g/dL (28.0-37.0); MCV 91.1 fL (80.0-100.0); MONOCYTES 7.8 % (1.0-8.0); PLATELET COUNT 202 thou/uL (150-400); RBC 3.97 mil/uL (4.50-6.00); RDW 16.3 % (10.5-14.5); WBC 12.4 thou/uL (4.0-11.0)
[2020-06-29 08:21] LABS: CALCIUM 8.6 mg/dL (8.5-10.1); POTASSIUM 3.7 mmol/L (3.5-5.1)
--- NOTE | 2020-06-29 17:56 | NUR ---
PT IS AOX4, VSS, PAIN MANAGED WITH IV AND ORAL PAIN ANALGESIC. PT MOANS AND REPORTS HE IS IN CONSTANT PAIN. IV IN LEFT FA/SL. SCDS, TEDS ON. DRESSING REMAINS CDI. PAULINO IS PATENT, CALL LIGHT IN REACH. WILL CONTINUE TO MONITOR.
[2020-06-29 19:17] VITALS: BP 97/59
[2020-06-29 19:43] VITALS: BP 123/63
[2020-06-30 05:03] VITALS: BP 108/73
[2020-06-30 06:09] LABS: ABSOLUTE NEUTROPHILS 9.9 thou/uL (1.4-8.2); BASOPHILS 0.3 % (0.0-2.0); EOSINOPHILS 1.6 % (0.0-3.0); HEMATOCRIT 36.5 % (42.0-52.0); HEMOGLOBIN 11.9 gm/dL (14.0-18.0); LYMPHOCYTES 11.1 % (24.0-44.0); MCH 29.6 pg (26.0-34.0); MCHC 32.7 g/dL (28.0-37.0); MCV 90.5 fL (80.0-100.0); MONOCYTES 6.5 % (1.0-8.0); PLATELET COUNT 222 thou/uL (150-400); POLYS 80.5 % (36.0-66.0); RBC 4.04 mil/uL (4.50-6.00); RDW 15.8 % (10.5-14.5); WBC 12.2 thou/uL (4.0-11.0)
[2020-06-30 06:11] LABS: CALCIUM 8.7 mg/dL (8.5-10.1); CREATININE 1.2 mg/dL (0.7-1.3)
--- NOTE | 2020-06-30 06:28 | NUR ---
ASSUMED PT CARE AT 1915. PT IS A&OX4. VSS. PT COMPLAINS OF PAIN AT A 10. PAIN MEDICATION ADMINISTERED. IV IS IN PT'S LEFT HAND SALINE LOCKED. PT USES CPAP AT NIGHT. PT CALLS OUT APPROPRIATELY. PT HAS A BOB IN PLACE. DRESSING IS INTACT WITH DRIED DRAINAGE. PT IS RESTING IN HIS ROOM. WILL CONTINUE TO MONITOR.
[2020-06-30 08:30] VITALS: BP 90/60
--- NOTE | 2020-06-30 10:06 | NUR ---
ASSUMED CARE AT 0700. A&O X4. PT STATES THAT HE HASNT HAD ANY BM. NIGHT NURSE EXPLAINED THAT THERE IS A LITTLE OF BLOOD ON DRESSING. WILL CHANGE DRESSING DURING SHIFT. SCD/TOSE HOSE ARE INTACT. PAIN COMPLAINS OF PAIN AND WAS GIVEN OXYCODONE AROUND 0600. BP IS SLIGHTLY LOW. 90/60, THEREFORE I HOLD BP MEDICATIONS. OTHER VS ARE WNL. WILL ASSESS VS AGAIN BEFORE GIVING ANOTHER SET OF PAIN MEDICATION. CALL LIGHT WITHIN REACH. DIET IS CARB CONTROL DIABETIC. WAS GIVEN CEFAZOLIN AND FLUSH WITH NORMAL SALINE. IV IS SALINE LOCK. IV SHOWS NO SIGNS OF REDNESS OR SWELLING. IV IS INTACT. FALL PRECAUTION. BOB IS INTACT.
[2020-06-30 14:50] VITALS: BP 114/78
--- NOTE | 2020-06-30 14:56 | NUR ---
YVON BARTHOLOMEW, CONTACTED THIS CM TO DISCUSS ARU. CM DISCUSSED ARU OPTION W/PT. PT DECLINED, STATED THERAPY MAKES "PAIN WORSE." CM F/U RE; HH. PT STILL INDECISIVE, "WANT TO SEE HOW THINGS GO." CM TO CONT TO FOLLOW.
[2020-06-30 15:24] VITALS: BP 117/80
[2020-06-30 19:23] VITALS: BP 101/64
[2020-07-01 04:04] VITALS: BP 93/65
--- NOTE | 2020-07-01 04:23 | NUR ---
ASSESSMENT COMPLETED. PT IS ALERT AND ORIENTED.REQUIRES HELP TO REPOSITION FROM SIDE TO SIDE WHILE IN BED DUE TO THE IMMENSE PAIN. ALTERNATING BTW OXYCODONE AND MORPHINE. PT DENIES ANY NAUSEA, HS BLOOD SUGAR WAS LOW(67), AFTER TAKING SOME YOGHURT AND POPSICLE, WENT UP TO THE 80S. SPOT CHECK THIS AM WAS ABOVE 100. PT USES BIBAP AT NOC,ON THE CONT PULSE OX, I NOTED THAT HE HAD TAKEN BIPAP OFF AT AROUND 3AM STATING HE DID NOT WANT IT ON. HE IS SATTING WELL ABOVE 95%. PT IS AFEBRILE. SCDS IN PLACE. HE REPORTS NUMBNESS AND TINGLING TO BOTH LEGS AND HANDS. HE TENDS TO LEAN TOWARDS THE RIGHT, AND REPORTS SOME MORE SORENESS TO THE RIGHT.BOB TO D/D WITH DARK YELLOW URINE.DRSG TO LOWER BACK WAS SO SATURATED AT THE START OF SHIFT, SEROSANGUINOUS OUTPUT NOTED-DRSG CHANGED X 1 SO FAR.CONTINUES ON IV ABTS.CALL LIGHT WITHIN REACH. WILL CONTINUE WITH POC TILL EOS.
[2020-07-01 06:02] LABS: ABSOLUTE NEUTROPHILS 7.4 thou/uL (1.4-8.2); BASOPHILS 0.5 % (0.0-2.0); EOSINOPHILS 2.5 % (0.0-3.0); HEMATOCRIT 34.2 % (42.0-52.0); HEMOGLOBIN 11.3 gm/dL (14.0-18.0); MCH 30.3 pg (26.0-34.0); MCV 91.9 fL (80.0-100.0); PLATELET COUNT 206 thou/uL (150-400); RBC 3.72 mil/uL (4.50-6.00); RDW 16.3 % (10.5-14.5); WBC 9.7 thou/uL (4.0-11.0)
[2020-07-01 06:39] LABS: POTASSIUM 3.8 mmol/L (3.5-5.1)
[2020-07-01 07:31] VITALS: BP 100/69
[2020-07-01 11:06] VITALS: BP 114/69
--- NOTE | 2020-07-01 11:14 | NUR ---
Patient is open to attend acute rehab to gain more physical strength. Goal is to get their pain down to a more tolerable level, and attend rehab to regain lost strength.
--- NOTE | 2020-07-01 11:35 | NUR ---
Assumed care of pt at 0700. Pt a&ox4. Prn pain meds administered per pt request. Blood sugar stable this am. Dressing on back saturated. New dressing ordered. Will change when new dressing reaches the floor. Pisano catheter in place. Up to chair with physical therapy. IV antibiotic discontinued. Call light within reach. Fall precautions in place. Will continue to monitor.
--- NOTE | 2020-07-01 11:45 | NUR ---
Assess for length of stay. S/P lumbar fusion. Hx diabetes, BG controlled, A1C 5.7. Eating 75-100% of most meals. No wt change. Low nutrition risk
--- NOTE | 2020-07-01 12:10 | NUR ---
I have reviewed the student documentation.
[2020-07-01 15:25] VITALS: BP 141/98
--- NOTE | 2020-07-01 16:08 | NUR ---
Pt working with therapy this am and agreeable to acute rehab. [facility] check and transfer beader evaluated the pt and they can accept pending insurance approval. Pt started on steriods to help with inflamation/pain. [facility] confirmed they have submited for ins auth.
[2020-07-01 20:00] VITALS: BP 142/98
--- NOTE | 2020-07-02 03:27 | NUR ---
ASSUMED PT CARE AT 1900.PT'S BG WAS IN THE MID 50'S.PT REF TO EAT BUT DRANK SOME APPLEJUICE.PT LATER RECEIVED GLUCOSE GEL AND TABS SINCE HE REF TO EAT.BG CAME UP TO 97.PT SLEPT WITH BIPAP FOR A COUPLE OF HOURS,LATER TOOK IT OF AT 0200 BECAUSE HE STATED THAT HE COULDN'T BREATHE.PT WAS PUT ON 2L/NC.DRSG ON HIS BACK WITH DRIED BLOOD.PT ABLE TO MOVE HIMSELF WHILE IN BED.CALL LIGHT WITHIN REACH.
[2020-07-02 05:38] VITALS: BP 114/76
[2020-07-02 06:11] LABS: ABSOLUTE NEUTROPHILS 5.4 thou/uL (1.4-8.2); BASOPHILS 0.6 % (0.0-2.0); EOSINOPHILS 2.9 % (0.0-3.0); HEMATOCRIT 35.2 % (42.0-52.0); HEMOGLOBIN 11.6 gm/dL (14.0-18.0); LYMPHOCYTES 18.8 % (24.0-44.0); MCH 30.3 pg (26.0-34.0); MCHC 32.9 g/dL (28.0-37.0); MONOCYTES 6.2 % (1.0-8.0); PLATELET COUNT 260 thou/uL (150-400); POLYS 71.5 % (36.0-66.0); RBC 3.82 mil/uL (4.50-6.00); RDW 16.5 % (10.5-14.5); WBC 7.6 thou/uL (4.0-11.0)
[2020-07-02 06:23] LABS: CALCIUM 8.8 mg/dL (8.5-10.1); CREATININE 1.1 mg/dL (0.7-1.3); POTASSIUM 4.5 mmol/L (3.5-5.1)
[2020-07-02 07:18] VITALS: BP 122/79
--- NOTE | 2020-07-02 11:34 | NUR ---
ON-GOING ASSESSMENT: UMA REVIEWED A VM FROM [facility] STATING PT IS BEING DENIED INPATIENT ACUTE REHAB BUT THERE IS AN OPTION FOR A PEER TO PEER IF PHYSICIAN REQUEST. CM NOTIFIED ATTENDING WHO REPORTS HE WILL DO A PEER TO PEER. CM CONTACTED [facility] AT TO SCHEDULE PEER TO PEER FOR DR. TRUONG FOR ACUTE REHAB AND IT IS SCHEDULED FOR TODAY 07/02 AT 1345. CM NOT[address] DR[address] TRUONG THAT DR. WINTERS WILL BE CONTACTING HIM THEN. CM ALSO PROVIDED PATIENT WITH A [facility] SNF LIST TO REVIEW INCASE THE DENIAL IS UPHELD. CM WILL CONTINUE TO FOLLOW AND AWAIT DETERMINATION OF PEER TO PEER.
[2020-07-02 15:11] VITALS: BP 110/67
--- NOTE | 2020-07-02 18:00 | NUR ---
PATIENT HAS WORKED WITH THERAPY TODAY. TAKES MEDS ORDERED. DRESSING CHANGED TO BACK. PT TO DISCHARGE TO [address] [place] [address].
--- NOTE | 2020-07-02 19:29 | NUR ---
DURING WALKING ROUNDS PATIENT WAS DISCOVERED WITH WET SHEETS. PT WAS INCONTINENT OF BLADDER BED LINENS AND PATIENT CLEANED NEW BEDDING ON BED. PATIENT HAD REMAINED CONTINENT ON DAY SHIFT USED URINAL AND WALKED TO BATHROOM WITH THERAPY. PT HAS GOOD APPETITE BLOOD SUGARS CHECKED AND NO S/S INSULIN GIVEN. PT IS PLEASANT AND COOPERATIVE WITH CARE.
[2020-07-02 19:30] VITALS: BP 117/80
--- NOTE | 2020-07-03 02:23 | NUR ---
ASSESSMENT COMPLETED, PT IS ALERT AND ORIENTED. USES URINAL AND AT TIMES IS INCONTINENT. DRSG TO BACK HAS SOME DRIED DRAINAGE. SCDS IN PLACE. PT TAKING MEDS OKAY. OXYCODONE GIVEN WITH RELIEF OF PAIN.WILL CONTINUE WITH POC.
[2020-07-03 03:37] VITALS: BP 111/63
[2020-07-03 06:08] LABS: ABSOLUTE NEUTROPHILS 9.3 thou/uL (1.4-8.2); BASOPHILS 0.2 % (0.0-2.0); EOSINOPHILS 0.1 % (0.0-3.0); HEMATOCRIT 37.4 % (42.0-52.0); HEMOGLOBIN 12.6 gm/dL (14.0-18.0); LYMPHOCYTES 11.3 % (24.0-44.0); MCH 30.4 pg (26.0-34.0); MCHC 33.7 g/dL (28.0-37.0); MCV 90.3 fL (80.0-100.0); MONOCYTES 3.7 % (1.0-8.0); POLYS 84.7 % (36.0-66.0); RBC 4.14 mil/uL (4.50-6.00); RDW 15.9 % (10.5-14.5); WBC 10.9 thou/uL (4.0-11.0)
[2020-07-03 06:15] LABS: PLATELET COUNT 347 thou/uL (150-400)
[2020-07-03 06:24] LABS: CALCIUM 9.4 mg/dL (8.5-10.1); CREATININE 1.1 mg/dL (0.7-1.3); POTASSIUM 4.2 mmol/L (3.5-5.1)
--- NOTE | 2020-07-03 08:41 | NUR ---
PATIENT TAKEN TO MRI AT THIS TIME. ADMITTED WITH DX OF COMPRESSION FX.
[2020-07-03 08:45] VITALS: BP 117/86
[2020-07-03] MEDS ORDERED: SENNA-TIME S T1 EACH PO (09:33)
[2020-07-03] MEDS ORDERED: MIRALAX17 GM PO (09:33)
[2020-07-03] MEDS ORDERED: ROBAXIN 750 MG750 MG PO (09:33)
[2020-07-03] MEDS ORDERED: HEPARIN SO5000 UNIT/ SUBQ (09:33)
[2020-07-03] MEDS ORDERED: PERCOCET 10-321 EACH PO (09:34)
--- NOTE | 2020-07-03 10:53 | NUR ---
PATIENT DISCHARGING FROM THIS UNIT IS BEING ADMITTED TO [facility] ROOM 505. DRESSING CHANGED TO LOWER BACK PATIENT GIVEN PRN PAIN MED REQUESTED. REPORT GIVEN TO [facility] NURSE. CARTER CHANNEL OPENER OUTSOLES FOR DR ROMERO HERE TO SEE PATIENT. PT LEFT UNIT AT THIS TIME VIA W/C
--- NOTE | 2020-07-03 13:13 | NUR ---
ON-GOING ASSESSMENT: PT HAS ORDERS TO DISCHARGE TODAY TO [facility]. [facility] STATES THEY CAN ACCEPT PT TODAY. PT REPORTS NO FURTHER NEEDS FROM CM.
== END 2020-07-03 11:07 | DRG 460 ==
LOC: ER 14:06 → 4S 15:50 → EROBS 15:50 → 4S 17:20
PROVIDERS: Hospitalist; Student in an Organized Health Care Education/Training Program; ADMIT Internal Medicine; ATTEND Internal Medicine
PROC: 0SB40ZZ Excision of Lumbosacral Disc, Open Approach (ICD-10-PCS; principal; 2020-06-25)
PROC: 5A09357 Assistance with Respiratory Ventilation, Less than 24 Consecutive Hours, Continuous Positive Airway Pressure (ICD-10-PCS; principal; 2020-06-25)
PROC: 0SG00J1 Fusion of Lumbar Vertebral Joint with Synthetic Substitute, Posterior Approach, Posterior Column, Open Approach (ICD-10-PCS; 2020-06-25)
PROC: 5A09357 Assistance with Respiratory Ventilation, Less than 24 Consecutive Hours, Continuous Positive Airway Pressure (ICD-10-PCS; 2020-06-26)
PROC: 0SG3071 Fusion of Lumbosacral Joint with Autologous Tissue Substitute, Posterior Approach, Posterior Column, Open Approach (ICD-10-PCS; 2020-06-27)
PROC: 00NY0ZZ Release Lumbar Spinal Cord, Open Approach (ICD-10-PCS; 2020-06-27)
PROC: 01NB0ZZ Release Lumbar Nerve, Open Approach (ICD-10-PCS; 2020-06-27)
PROC: 01NR0ZZ Release Sacral Nerve, Open Approach (ICD-10-PCS; 2020-06-27)
PROC: 5A09357 Assistance with Respiratory Ventilation, Less than 24 Consecutive Hours, Continuous Positive Airway Pressure (ICD-10-PCS; 2020-06-27)
PROC: 5A09457 Assistance with Respiratory Ventilation, 24-96 Consecutive Hours, Continuous Positive Airway Pressure (ICD-10-PCS; 2020-06-28)
DX: M51.17 Intervertebral disc disorders with radiculopathy, lumbosacral region (principal); M48.061 Spinal stenosis, lumbar region without neurogenic claudication; M43.16 Spondylolisthesis, lumbar region; I10 Essential (primary) hypertension; K21.9 Gastro-esophageal reflux disease without esophagitis; E11.9 Type 2 diabetes mellitus without complications; I48.91 Unspecified atrial fibrillation; G47.33 Obstructive sleep apnea (adult) (pediatric); Z60.2 Problems related to living alone; F32.9 Major depressive disorder, single episode, unspecified; K59.00 Constipation, unspecified; R20.1 Hypoesthesia of skin; I95.81 Postprocedural hypotension; Z20.828 Contact with and (suspected) exposure to other viral communicable diseases; Z90.49 Acquired absence of other specified parts of digestive tract; Z88.8 Allergy status to other drugs, medicaments and biological substances; Z86.711 Personal history of pulmonary embolism; Z86.718 Personal history of other venous thrombosis and embolism; Z79.82 Long term (current) use of aspirin; Z79.899 Other long term (current) drug therapy
CPT/HCPCS: 10195; 50010; 50101; 50402; 50850; 50923; 51878; 56524; 56526; 56529; 58247; 58248; 58251; 5828; 58299; 58300; 62110; 62900; 65131; 70005

== ENCOUNTER 2020-07-03 10:00 | Inpatient (IN) | payer OTHER ==
[~2020-07-03] VITALS: Ht 152.4 cm; Wt 108.9 kg
--- NOTE | ~2020-07-03 | H ---
[facility] [place] [address] HISTORY AND PHYSICAL Name: JAIRO GALINDO Room #: 505-P [facility] IN M.R.#: [id number] Admission: 07/03/20 Attend Phys: Ahmet Molina MD Discharge: Date of : 47 Report #: [id number] THIS REPORT FOR: cc: [facility] - Clinic physician unknown [facility] - Clinic physician unknown Ahmet Molina MD ~ CC: Ahmet Molina [facility] unknown DATE OF SERVICE: 07/03/2020 HISTORY OF PRESENT ILLNESS: The patient has been admitted with intractable back pain radiating down both legs. He underwent surgery on 06/25/2020 with lumbar spine HNP excision and was worse post-surgery and he does return to the OR on 06/27/2020 for lumbar fusion due to moderate to severe spinal stenosis and herniated disk. He had some postoperative hypotension, requiring IV fluids. He was given an oral Medrol pack along with Lyrica and Robaxin. He was admitted for acute in-hospital inpatient rehabilitation. He was in no distress. PHYSICAL EXAMINATION: GENERAL: He was pleasant. He is on nasal cannula O2, 2 liters. VITAL SIGNS: Stable. Last recorded blood pressure 142/90, pulse 60, temperature 97.4. HEENT: Facies are symmetric. CHEST: Sounded clear to auscultation. CARDIAC: Regular rate and rhythm. ABDOMEN: Bowel sounds positive, nontender. MUSCULOSKELETAL: Back incision is dressed. As far as his manual muscle testing, is a little weaker of that right lower extremity with some discomfort with testing. I would grade his hip flexion at probably 3+/5 with ankle dorsiflexion 3+/5 secondary to pain. Better strength in the left more of a grade 4+/5. He is sensitive to touch, especially the right lower extremity more than the left lower extremity. He has been min to mod assist coming to stand and has taken a few steps with a walker prior to his rehabilitation admission. ASSESSMENT: 1. Lumbar radiculopathy with lower extremity weakness. 2. Lumbar herniated disk with spinal stenosis, status post fusion with surgery on 06/25/2020 and 06/27/2020. 3. Postoperative hypotension. 4. Diabetes mellitus type 2. 5. History of pulmonary embolism, on long-term anticoagulation. 6. Obstructive sleep apnea. 7. History of atrial fibrillation, now in normal sinus rhythm. PLAN: The patient is involved in the inpatient rehabilitation program[place] [address] HISTORY AND PHYSICAL Name: JAIRO GALINDO Room #: 505-P [facility] IN [facility]#: [id number] Admission: 07/03/20 Attend Phys: Ahmet Molina MD Discharge: Date of : 47 Report #: [id number] to maximize his functional independence, so he can hopefully return back to his prior living situation. The admissions consultant physicians will continue to follow during his acute hospitalization. By: 1506 Ahmet Molina MD /VANDANA
--- NOTE | ~2020-07-03 | PLAN ---
[facility] [place] [address] REHAB UNIT PLAN OF CARE Name: JAIRO GALINDO Room #: 505-P ADM IN M.R.#: [id number] Admission: 07/03/20 Attend Phys: Ahmet Molina MD Discharge: Date of : 47 Report #: [id number] THIS REPORT FOR: //name// CC: Ahmet Molina [facility] unknown DATE OF SERVICE: 07/05/2020 PROGRESS NOTE/OVERALL PLAN OF CARE SUBJECTIVE: The patient was seen back in followup. He was seen earlier. He was in no noted distress. Temperature 36.3, pulse 59, respirations 16, blood pressure 132/83. Back pain appears improved with the Medrol Dosepak. Wound care has been consulted. He has been working in therapies with sit to stand, mod assist. He was able to ambulate 50 feet, max assist of 2 with a front-wheeled walker. In occupational therapy, lower body dressing is min assist, upper body dressing supervision. Speech therapy has been involved with moderately impaired memory with functional deficits noted to be more moderate to severely impaired. ASSESSMENT: 1. Lumbar radiculopathy with lower extremity weakness. 2. Lumbar herniated disk with spinal stenosis, status post fusion surgery on . 3. Postop hypotension. 4. Diabetes mellitus type 2. 5. History of pulmonary embolism, on long-term anticoagulation. 6. Obstructive sleep apnea. 7. History of atrial fibrillation since in normal sinus rhythm. PLAN: The overall plan of care is based on the preadmission screen and information garnered from therapy assessments. 1. Estimated length of stay is probably going to be 14 days and likely longer if warranted. 2. Medical prognosis is reasonably good. 3. Anticipated interventions includes the interdisciplinary acute inpatient rehabilitation program. 4. Anticipated functional outcomes would be for the patient to become modified independent with transfers, mobility, ADLs, so that he can be up and moving, better. 5. Discharge destination would be back to the home setting. He does live in an apartment alone, but does not have any steps. 6. Expected therapy by discipline includes PT, OT and speech 1 hour per day each five days a week throughout the duration of the acute inpatient rehabilitation stay. [address] [address] REHAB UNIT PLAN OF CARE Name: JOSIEJAIRO Ellen Room #: 505-P [facility] IN [facility].#: [id number] Admission: 07/03/20 Attend Phys: Ahmet Molina MD Discharge: Date of : 47 Report #: [id number] ADDENDUM: The patient's prognosis for significant practical improvement within a reasonable period of time appears good. Given the patient's complex medical condition and risk of further medical complications, rehabilitation services could not be safely provided at a lower level of care such as a shelter facility. The patient has involvement with the hospitalist service. Wound care spinal surgery neuropsychology. By: [id number] Ahmet Molina MD /VANDANA
[~2020-07-03 10:00] MED LIST changes: +DITROPAN XL10 M1 PO; +HEPARIN SO5000 UNIT/ SUBQ; +LIPITOR 40 MG T40 M1 PO; +LYRICA100 MG PO; +METFORMIN HCL500 MG PO; +MIRALAX17 GM PO; +ROBAXIN 750 MG750 MG PO; +SENNA-TIME S T1 EACH PO; +ZANAFLEX4 M2 PO
--- NOTE | 2020-07-03 12:10 | NUR ---
chart review. jon is new to acute rehab this morning. cm visited with him via phone call. education on dcp, team meetings and transition of care. noted he lives alone in apartment, no steps, has cane and walker that is not being used prior to hospital. uses bipap. per jon " independent when feeling good, apartment on ground level. son helps run errands and get food if needed. 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 still drive and manage own medication. no rehab or hh in past"/jon. will cont following as needed for dc needs.
[2020-07-03 12:50] VITALS: BP 92/63
--- NOTE | 2020-07-03 13:04 | NUR ---
74 YEAR OLD MALE ARRIVES VIA WC TO UNIT FROM RM 443 ADMITTED TO ORTHO WITH LUMBAR RADIICULOPATHY WITH LE WEAKNESS-LUMBAR FUSION 06/25,06/27. AQUACEL DRESSING TO LOW BACK SLIGHTLY RIGHT OF MIDLINE-C/D/I. SALINE LOCK RIGHT FOREARM. DOES REPORT LOW BACK PAIN RATED A 10/10 AT APPROX. 1215 WHEN ASSESSED BY THIS RN. FLUX PLANT OPERATOR NOTIFIED AND ORDERS RECEIVED. SCHEDULED LYRICA GIVEN ALONG WITH METHOCARBINAL SCHEDULED. BS AT 1200 118. ADMIT VS/HT WEIGHT OBTAINED-ORIENTED TO ROOM/UNIT-LUNCH PROVIDED.
--- NOTE | 2020-07-03 15:35 | NUR ---
REPORTING LOW BACK PAIN RATED A 10/10 AT 1430-REQUESTED AND RECEIVED PERCOCET 2 TABS PO PRN. AT APPROX 1530 BED EXIT ALARM SOUNDED AND PT WAS FOUND STANDING AT SIDE OF BED-GESTURING WILDLY AND YELLING "SOMEONE WAS SHOT'-THEY SHOT HIM" AFTER APPROX 2-3 MINUTES STATES "OH I THINK I HAD A BAD DREAM" "MUST BE THE ADRENALINE"
[2020-07-03 19:50] VITALS: BP 109/73
--- NOTE | 2020-07-04 03:19 | NUR ---
Assumed pt's care this pm shift. Pt alert and oriented x4. Forgetful. VSS on RA. CPAP @ HS. PRN pain med given this shift. Pt voids via urinal. Sleeping well so far. Dressing to back C/D/I. RFA IV SL. Fall precaution in place. Call light within reach. Will continue to monitor.
[2020-07-04 06:27] LABS: HEMOGLOBIN 12.1 gm/dL (14.0-18.0); MCH 30.1 pg (26.0-34.0); MCHC 32.7 g/dL (28.0-37.0); MCV 91.9 fL (80.0-100.0); RBC 4.03 mil/uL (4.50-6.00); RDW 16.4 % (10.5-14.5)
[2020-07-04 06:51] LABS: CALCIUM 9.4 mg/dL (8.5-10.1); CREATININE 1.2 mg/dL (0.7-1.3)
[2020-07-04 07:27] VITALS: BP 142/106
[2020-07-04 09:50] VITALS: BP 142/90
--- NOTE | 2020-07-04 11:58 | NUR ---
Nutrition: Pt transferred to rehab unit S/P lumbar fusion. Consulted due to wound which is surgical incision. Hx DM but BG well controlled. Eating 75-100% most meals on carb controlled diet. No weight change. Low nutrition risk.
[2020-07-04 13:31] LABS: FOLIC ACID 7.5 ng/mL (8.6-58.9); TSH 0.372 uIU/mL (0.358-3.740)
--- NOTE | 2020-07-04 13:38 | NUR ---
ASSUMED CARES AT 0700. PT LETHARGIC AND SLEEPY THIS AM, UNABLE TO EAT BREAKFAST OR DO THERAPY R/T LETHARGY. BP 142/106, NORVASC ADMINISTERED ORDERED, BP RECHECKED AFTER 1HR 142/90. CHEST XRAY ORDERED. PT WOKE-UP AT 1000 AND PARTICIPATED WELL IN ALL THERAPIES THEN. ATE 100% OF HIS LUNCH. SURGICAL DRESSING ON LOWER BACK FELL OFF, STERI STRIPS PLACE ALONG THE INCISION AND [place] DRESSING, PROVIDER NOTIFIED. PT DENIES PAIN AT THIS TIME. ALL OTHER VITALS STABLE. EDEMA NOTED ON LLE, EXTREMITIES ELEVATED. SRINI HOSE OFF FOR SKIN CARE WITH RESUME AFTER. UP WITH SBA, GB AND WALKER AND TOLERATED WELL. Q1H VISUAL CHECKS. CALL LIGHT WITHIN REACH. FALL PRECAUTIONS IN PLACE.
[2020-07-04 19:35] VITALS: BP 112/79
--- NOTE | 2020-07-04 21:22 | NUR ---
ASSUMED CARE AND REPORT RECEIVED NAVEED 190. PT ALERT AND STATED THAT PAIN IS UNDER GREAT CONTROL DUE TO THE STEROIDS. HE STATED, "I FEEL SO MUCH BETTER NOW!" PT HAS NOT REQUIRED NARCOTIC PAIN MEDS PER REPORT FOR MORE THAN 12 HOURS. VISUALIZED INCISION DRESSING TO LUMBER SPINE AND NOTED SLIGHT SHADOW OF SEROUS DRAINAGE. REPORT GIVEN TO Suad DICKINSON RN ABOUT AN HOUR LATER, AND NOTED THAT THE DRESSING IS INTACT, WITH SLIGHT DEPENDENT DRAINAGE.
[2020-07-05 00:46] LABS: URINE BILIRUBIN NEGATIVE (Negative); URINE BLOOD NEGATIVE (Negative); URINE CLARITY CLEAR; URINE COLOR YELLOW; URINE GLUCOSE-RANDOM* NEGATIVE (Negative); URINE KETONES NEGATIVE (Negative); URINE LEUKOCYTES-REFLEX NEGATIVE (Negative); URINE NITRITE-REFLEX NEGATIVE (Negative); URINE PROTEIN (DIPSTICK) NEGATIVE (Negative)
--- NOTE | 2020-07-05 03:45 | NUR ---
DOING WELL WITH CPAP AND 02 BLEED-IN AFTER INITIALLY HAVING TROUBLE FALLING ASLEEP. VOIDED WITH SUGGESTION FOR UA AT HS. PAIN PILL FOR MILD BACK PAIN AT HS. BACK DRESSING STERI-STRIPS INTACT, SEROSANGINOUS DRAINAGE, REINFORCED WITH ABD AT HS
[2020-07-05 08:00] VITALS: BP 132/83
--- NOTE | 2020-07-05 12:26 | NUR ---
ASSUMED CARE AT 0700. PATIENT IS ALERT AND ORIENTED,BUT HAVING A LOT OF BACK PAIN. PATIENT LUNGS ARE CLEAR. ABD IS SOFT WITH BSX4. PATIENT IS VOIDING PER URINAL RONNY COLORED URINE. UP IN CHAIR FOR MEALS. FALL AND SAFETY PROTOCOLS IN PLACE. C/O SEVERE PAIN IN HIS LOWER BACK. MEDICATED WITH PRN PAIN MED. DRESING CHANGED TO HIS LOWER BACK PER PROTOCOL. CONTINUES TO PROGRESS SLOWLY TOWARDS D/C GOALS. WILL CONTINUE TO MONITER.
[2020-07-05 19:47] VITALS: BP 118/87
--- NOTE | 2020-07-06 00:57 | NUR ---
PT ASSESSMENT COMPLETED AND VSS. MEDS GIVEN ORDERED AND WELL TOLERATED. FALL PRECAUTIONS IN PLACE. PRN PAIN MEDICATION WORKING WELL. DSG ON BACK DRY AND INTACT. PT ITCHING ON BACK NOT WHERE INCISION IS LOCATED. PEELED OFF LOTS OF OLD TAPE AND APPLIED CREAM TO BACK. PT STATES THAT HE IS FEELING MUCH BETTER. SCDS ON. VOIDING MODERATE AMOUNT OF DARK YELLOW URINE PER URINAL. SLEEPING ON AND OFF. WILL CONTINUE TO MONITOR FREQUENTLY.
[2020-07-06 09:10] VITALS: BP 115/81
[2020-07-06 11:37] VITALS: BP 101/67
--- NOTE | 2020-07-06 14:12 | NUR ---
ASSUMED CARES AT 0700. PT AWAKE, ALERT AND ORIENTED*4. C/O PAIN LOWER BACK, /10, PAIN MEDICATION ADMINISTERED NEEDED. BP LOW THIS AM, BP LOWERING MEDS WITHHELD, RETOOK BP AFTER 15MINS STABLE. PT ENOCURAGED TO INCREASE FLUID INTAKE. DRESSING ON INCISION ON LOWER BACK CHANGED, INCISION REMAINS INTACT, MOD AMOUNT OF SEROUSANGUINOUS DRAINAGE NOTED. PT UP WITH SBA, GB AND TOLERATED WELL. Q1H VISUAL CHECKS. CALL LIGHT WITHIN REACH. FALL PRECAUTIONS IN PLACE.
[2020-07-06 20:00] VITALS: BP 129/97
--- NOTE | 2020-07-07 03:00 | NUR ---
C/O PAIN FROM TOSSING AND TURNING DUE TO ITCHING. BENADRYL HAS EASED THE ITCH, SECOND PAIN PILL OFFERED AND DECLINED. TOLERATING CPAP WITH O2 2L BLEED-IN. DRESSING ESSENTIALLY DRY
[2020-07-07 08:00] VITALS: BP 116/89
--- NOTE | 2020-07-07 14:11 | NUR ---
ASSUMED CARES AT 0700. PT AWAKE, ALERT AND ORIENTED*4. VITALS REMAIN STABLE. C/O BACK AND RIGHT KNEE PAIN, PAIN MEDICATION ADMINISTERED NEEDED. LOWER BACK INCISION CLEANED AND DRESSING CHANGED, LARGE AMOUNT OF SEROUSSANGUINOUS DRAINAGE NOTED. PT C/O ITCHINESS ON BACK, LOTION APPLIED ON BACK. PT UP WITH SBA, GB AND TOLERATED WELL. Q1H VISUAL CHECKS. CALL LIGHT WITHIN REACH. FALL PRECAUTIONS IN PLACE.
[2020-07-07 19:20] VITALS: BP 120/81
--- NOTE | 2020-07-08 02:08 | NUR ---
DENIES NEED FOR PAIN MED THIS EVENING, BUT IS HAVING TROUBLE WITH ITCHY BACK AGAIN TONKERRY,STATES BENADRYL HELPFUL AND HAS SOLVED THE PROBLEM AGAIN. CPAP ON WITHOUT OXYGEN AND NO DESAT ALARM AT ALL SINCE PLACED ABOUT 90 MINUTES AGO
[2020-07-08 05:36] LABS: ABSOLUTE NEUTROPHILS 6.2 thou/uL (1.4-8.2); BASOPHILS 0.5 % (0.0-2.0); EOSINOPHILS 4.6 % (0.0-3.0); HEMATOCRIT 35.9 % (42.0-52.0); HEMOGLOBIN 11.7 gm/dL (14.0-18.0); LYMPHOCYTES 22.8 % (24.0-44.0); MCH 29.8 pg (26.0-34.0); MCHC 32.5 g/dL (28.0-37.0); MCV 91.8 fL (80.0-100.0); MONOCYTES 7.1 % (1.0-8.0); PLATELET COUNT 425 thou/uL (150-400); RBC 3.91 mil/uL (4.50-6.00); RDW 16.3 % (10.5-14.5); WBC 9.6 thou/uL (4.0-11.0)
[2020-07-08 05:48] LABS: CALCIUM 9.4 mg/dL (8.5-10.1); CREATININE 1.1 mg/dL (0.7-1.3); MAGNESIUM 1.9 mg/dL (1.8-2.4); POTASSIUM 3.9 mmol/L (3.5-5.1)
[2020-07-08 07:50] VITALS: BP 115/83
[2020-07-08 09:10] VITALS: BP 115/83
--- NOTE | 2020-07-08 13:06 | NUR ---
team meeting, reccomendation: pain, and wound care following. needs assistance with bils and pills. no driving till cleared from pcp and surgeron. dc [facility] ( pt, ot, st, nursing).
--- NOTE | 2020-07-08 18:26 | NUR ---
Alert and orientated X 4. Stated pain 10/10 that started in R foot and extended up through R back and into R neck and jaw. Denies nausea, no diaphoresis. Pain med given with quick response, decreased to a 6 and then to 0. Calm, cooperative and compliant. Breath sounds clear and diminished in lower lobes. Reg HR auscultated. Color pink with brisk capillary refill and palpable peripheral pulses. Yellow urine per urinal. Active bowel sounds over soft, rounded abdomen. Independent with eating. Drsg to mid back dry and intact, site with several steristrips, no s/o infection. Dressed with ABD and paper tape. Reported back pain 8-9 to lower back, down to 1 with perocet. Watching TV without s/o distress.
[2020-07-08 19:37] VITALS: BP 113/76
--- NOTE | 2020-07-09 01:27 | NUR ---
Assumed care of patient this pm shift. Patient in good spirits, calm and cooperative. Patient describes pain as 9/10. Oxy given per order. Pain in back tolerable after medication. Breath sounds clear, bowel sounds present. Dressing to mid back dry and in tact. Call light within reach. Falls precautions in place. Patient alert and oriented x4. Patient takes medications whole with thin fluids. No signs of acute distress. We will continue to monitor per hospital policy.
[2020-07-09 07:24] VITALS: BP 114/80
--- NOTE | 2020-07-09 08:10 | NUR ---
ASSUMED CARE AT 0700. PATIENT IS ALERT AND ORIENTED X4. PATIENT CHIN'S, SKIDDER OPERATOR ARE EQUAL. LUNGS ARE CLEAR AND DEMINISHED. ABD IS SOFT WITH BSX4. PATIENT DRESSING ON HIS BACK IS DRY AND INTACT. DRESSING CHANGED ACCORDING TO PROTOCOLS. C/O ITCHING ON HIS LEFT ABD AREA, & BACK. BENADRYL GIVEN BY NIGHT NURSE. FALL AND SAFETY PROTOCOLS IN PLACE. DENIES PAIN AT THIS TIME. WILL CONTINUE TO MONITER.
--- NOTE | 2020-07-09 13:37 | NUR ---
cm tried calling brother adriano and son dillan. no answer, cm left message requesting call back .
[2020-07-09 19:30] VITALS: BP 132/82
--- NOTE | 2020-07-10 01:38 | NUR ---
DRY DRESSING TO LOW BACK. PATIENT HAS INTERMITTENT PAIN WITH ONCE UNABLE TO GET TO URINAL QUICK ENOUGH WITH PAIN FLARE-UP. NOW USING BIPAP WITH O2 SAT STAYING ABOVE 96% WITHOUT SUPPEMENTAL OXYGEN. PLEASANT
[2020-07-10 08:08] VITALS: BP 90/60
[2020-07-10] MEDS ORDERED: FOLIC ACID1 MG PO ×2 (11:16)
[2020-07-10] MEDS ORDERED: SENNA-TIME S T1 EACH PO ×2 (11:16)
[2020-07-10] MEDS ORDERED: MIRALAX17 GM PO ×2 (11:16)
[2020-07-10] MEDS ORDERED: VITAMIN D21250 MC1 PO (11:16)
[2020-07-10] MEDS ORDERED: ROBAXIN 750 MG750 MG PO ×2 (11:16)
[2020-07-10] MEDS ORDERED: VITAMIN B-12500 MCG PO ×2 (11:16)
--- NOTE | 2020-07-10 12:56 | HC ---
[facility] [place] [address] CONSULTATION Name: JAIRO GALINDO Room #: 505-P [facility] IN M.R.#: [id number] Admission: 07/03/20 Attend Phys: Ahmet Molina MD Discharge: Date of : 47 Report #: [id number] THIS REPORT FOR: cc: [facility] - Clinic physician unknown [facility] - Clinic physician unknown Blaine Argueta PhD ~ DATE OF SERVICE: 07/05/2020 BEHAVIORAL STATUS EXAM ATTENDING PHYSICIAN: Ahmet Molina MD EAR MUFF ASSEMBLER: Blaine Argueta, PhD CLINICAL PRESENTATION: The patient is a 74-year-old male admitted to the rehabilitation unit for treatment of intractable back pain radiating down both legs. The patient underwent surgery on 06/25/2020 for the lumbar spine excision. He had to return to the operating room on 06/27/2020 for lumbar fusion due to [id number] spinal stenosis and a herniated disc. The patient had postoperative hypotension and required IV fluids. He was given an oral Medrol David along with Lyrica and Robaxin. His assessment on admission to the rehab unit is a lumbar radiculopathy with lower extremity weakness, lumbar herniated with spinal stenosis, status post fusion with surgery on 06/25/2020 and 06/27/2020, postoperative hypotension, diabetes mellitus type 2, history of pulmonary embolism, on long-term anticoagulation, obstructive sleep apnea, history of atrial fibrillation, now in normal sinus rhythm. A complete description of his medical condition and history can be found in his medical record. Neuropsychological consultation was requested to provide assistance in the assessment of cognitive and emotional status and provide recommendations and services. Prior to this most recent medical event, he reports having fallen and unable to stand. He reported having pretty severe leg pain. While he fell to the floor, he may have hit his head, but was not sure. The patient lives independently. His in 2011. He has 4 children in the [place] area. The patient is a college graduate. He reports having played football and box while in high school. He is a [place] . The patient was supervised with the [employer] until his shelter. TECHNIQUES UTILIZED: Clinical interview, review of medical records, staff consultation and behavioral observation, mini mental status exam 2 standard version, clock drawing and letter category fluency. [address] [address] CONSULTATION Name: JAIRO GALINDO Room #: 505-P [facility] IN .R.#: [id number] Admission: 07/03/20 Attend Phys: Ahmet Molina MD Discharge: Date of : 46 Report #: [id number] EXAMINATION FINDINGS: The patient was alert and cooperative with the assessment. He accurately described events surrounding his admission. The patient does not report symptoms of cognitive disorder. He indicates having a decreased appetite. He does not report problems with sleep, anxiety, depression, or history of alcohol/drug abuse. Performance on the MMSE 2 brief version was in the mild range of impairment with a raw score 12/16 and a T score of 26. He was 3/3 for initial registration, 4/5 for orientation to time and 5/[address]. He was 0/3 for immediate recall of 3 items after a brief time delay and distraction. His performance improved on the standard version of the MMSE 2 to a raw score of 25/30, with a T score 38, percentile rank at 12. The patient was 4/5 for serial sevens, 2/2 for naming, 1/1 for repetition, 3/3 for comprehension. He could read and follow a single command and write a sentence. The patient was able to accurately draw a simple geometric design. Clock drawing was within normal limits. Performance in letter category fluency suggests impaired category fluency. Letter fluency was in the low average range with a T score of 38 and percentile rank of 12, which may be in the subtle to mildly impaired area. Category fluency was extremely low with a raw score of 20 and a T score of 22, which is at the first percentile. Overall, total fluency was a T score 28 and percentile rank of 1. The patient is presenting with deficits in immediate recall, and verbal fluency, which often suggest executive dysfunction. DIAGNOSTIC IMPRESSION: Mild neurocognitive disorder, unspecified, without behavior disorder. RECOMMENDATIONS: The patient may need increased assistance upon his immediate return home. Assistance in planning and problem solving may be of benefit to avoid any potential safety issue. His mood appears good at this time. Thank you very much for allowing me to provide the consultation on this patient. <ELECTRONICALLY SIGNED> By: Blaine Argueta, PhD 07/10/20 [id number] Blaine Argueta, PhD /nt
--- NOTE | 2020-07-10 14:08 | NUR ---
cm re visited with jon at bedside, he was working with . karolyn cont to wear face mask and shield during visit. karolyn was checking to see if he had picked hh yet since he will be dc tomorrow. " no but i will today. [facility] was here and will not fill medication if they don't have information"/jon. karolyn passed on information to unite preparation supervisor freezing. will cont following as needed for dc needs.
--- NOTE | 2020-07-10 14:52 | NUR ---
PATIENT IS ALERT, AND ORIENTED X 3-4, ABLE TO VOICE NEED. LUNGS CLEAR BUT, DIMINISHED IN ALL LOBE PER AUSCULTATION. BS+X4, ABD SOFT, NON-TENDER TO TOUCH. PATIENT IS EATING MEALS, AND DRINKING FLUID WELL. PATIENT TOOK ALL MEDICATION WHOLE WITHOUT DIFFICULTY. HE IS EATING MEALS, AND DRINKING FLUID WELL. DRESSING TO BACK CHANGED BY STAFF PER UNIT PROTOCOL. PATIENT DENIES HAVING PHYSICAL PAIN. PATIENT IS CALM, COOPERATIVE WITH CARE, NO SIGN OF ACUTE DISTRESS NOTED AT THIS TIME, CALL LIGHT IN REACH, WILL CONTINUE TO MONITOR.
--- NOTE | 2020-07-10 16:02 | NUR ---
DC PLANNING: PATIENT NOTIFIED THAT HIS PHARMACY AT THE [facility] CALLED TO TELL HIM THAT THEY WILL NOT FILL HIS RX'S BECAUSE THEY DID NOT KNOW HE WAS IN THE HOSPITAL. WE DID NOT HAVE ANY RECORD OF [facility] BENEFITS IN OUR SYSTEM FOR THIS PATIENT, AND THE BUSINESS FINAL EXPENSE AGENT WAS NOTIFIED, AND A COPY OF THE [facility] CARD WAS OBTAINED. [facility] WAS NOTIFIED OF BOTH THE ADMISSION TO ACUTE THROUGH THE ED ON 06/24, DC AND ADMISSION TO ACUTE REHAB ON 07/03, AND TENTATIVE DC TO HOME TOMORROW ON 07/11. THEY WERE UNABLE TO PROVIDE AN AUTHORIZATION # RIGHT AWAY, BUT THE REFERENCE # FOR THE CALL IS ENTERED INTO THE BILLING NOTES. THE PAINT STRIPPER VIVI Barrera FROM [facility] STATED THAT THE HOSPITAL STAY NOTIFICATION WOULD BE IN THE SYSTEM, AND THE PHARMACY SHOULD BE ABLE TO SEE THAT INFORMATION TOMORROW. WILL ADVISE PATIENT TO CALL HIS PHARMACY TOMORROW TO VERIFY THAT THEY HAVE THE INFORMATION THAT THEY NEED TO FILL HIS PRESCRIPTIONS PRIOR TO DISCHARGE FROM OUR HOSPITAL.
--- NOTE | 2020-07-10 16:04 | NUR ---
ST REPORTED THAT JAIRO WENT OVER THE HH LIST OF CHOICES AND PICKED [facility]. ST GOING TO REACH OUT TO BROTHER AND SON RT PT NEEDS ASSISTANCE WITH PILLS AND BILL. BROTHER NOR SON HAS RETURNED CM CALLS.
[2020-07-10 19:18] VITALS: BP 94/67
--- NOTE | 2020-07-11 02:04 | NUR ---
assumed care approx 1900 evening 07/10. pt alert and oriented x4, pleasant and cooperative. pt in good mood stated he felt good about therapy and looking forward to being discharged. pt took hs meds with water tolerating well. pt wearing cpap at present and appears to be sleeping soundly with hourly rounding. urinal at bedside. bed alarm on and call light in reach. will continue to monitor.
[2020-07-11 07:41] VITALS: BP 107/73
--- NOTE | 2020-07-11 08:07 | NUR ---
cm notified by that dillan is want a phone call about jon needs, procedure and other health care question. cm will reach out to dillan to see what time he will be able to speak with md or package clerk from acute rehab.
[2020-07-11 09:04] VITALS: BP 107/73
[2020-07-11] MEDS ORDERED: ROBAXIN 750 MG750 MG PO ×2 (10:05)
--- NOTE | 2020-07-11 10:22 | NUR ---
ASSUMED CARES AT 0700. PT ASLEEP WITH CPAP IN PLACE, WOKEUP AT 0730. ALERT AND ORIENTED*4 BUT FORGETFUL. C/O LOWER BACK PAIN AROUND INCISION, PAIN MEDICATION ADMINISTERED NEEDED. VITALS REMAIN STABLE FOR THIS PATIENT. LOWER BACK INCISION REMAINS DRY AND INTACT, SITE CLEANED AND DRESSING CHANGED. PT IS MODIFIED INDEPENDENT IN THE ROOM AND TOLERATES WELL. AMBULATED WITH TRUCK LEASING MANAGER, WITH GB AND WALKER AROUND THE UNIT. DRESSED INDEPENDENTLY. PT TO DISCHARGE TODAY TO HOME WITH HOMEHEALTH. DC INSTRUCTION AND EDUCATION TO BE COMPLETED WITH PATIENT PRIOR TO DC. Q1H VISUAL CHECKS. CALL LIGHT WITHIN REACH. FALL PRECAUTIONS IN PLACE
[2020-07-11 12:32] VITALS: BP 107/73
--- NOTE | 2020-07-11 12:37 | NUR ---
REFERRAL FAXED TO [facility] SPOKE WITH NITA THEY CAN ACCEPT FAXED DC ORDERS/SUMMARY RECEIVED CONFIRMATION THEY WILL CALL PT TO ARRANGE VISITS.
--- NOTE | 2020-07-14 08:03 | HC ---
[facility] [place] [address] CONSULTATION Name: JAIRO GALINDO Room #: 505-P [facility] IN ..#: [id number] Admission: 07/03/20 Attend Phys: Ahmet Molina MD Discharge: 07/11/20 Date of : 47 Report #: [id number] THIS REPORT FOR: cc: [facility] - Clinic physician unknown [facility] - Clinic physician unknown Matteo Marrero MD ~ DATE OF SERVICE: 07/04/2020 CHIEF COMPLAINT: Surgical wound to the back. HISTORY OF PRESENT ILLNESS: This is a 74-year-old male patient who had previously been admitted to the hospital with intractable back pain. He underwent a spinal HNP excision and then underwent subsequent lumbar fusion for [id number]-[id number] spinal stenosis. He was noted to have some drainage from his incision line. I was asked to see him for a wound care. PAST MEDICAL HISTORY: Significant for history of syncope, hypertension, enlarged prostate, GERD, type 2 diabetes mellitus, sleep apnea, atrial fibrillation. SOCIAL HISTORY: Negative for alcohol or tobacco use. FAMILY HISTORY: Noncontributory. MEDICATIONS: Include amlodipine, atorvastatin, Glucophage, Ditropan, Lyrica, Eliquis, omeprazole. ALLERGIES: GABAPENTIN AND LISINOPRIL. FAMILY HISTORY: Noncontributory. REVIEW OF SYSTEMS: CONSTITUTIONAL: The patient denies fever, chills or weight loss. NEUROLOGICAL: The patient denies focal weakness, numbness or tingling. EYES: The patient denies visual changes, redness or drainage. ENT: The patient denies earache, nasal drainage, sore throat. CARDIOVASCULAR: The patient denies chest pain, palpitations or diaphoresis. PULMONARY: The patient denies cough or shortness of breath. GASTROINTESTINAL: The patient denies nausea, vomiting, diarrhea or abdominal pain. ORTHOPEDIC: The patient notes the incision on his back. Denies significant pain in his legs. Other systems in a 14-point review of systems are negative. [address] [address] CONSULTATION Name: JAIRO GALINDO Room #: 505-P [facility]#: [id number] Admission: 07/03/20 Attend Phys: Ahmet Molina MD Discharge: 07/11/20 Date of : 47 Report #: [id number] PHYSICAL EXAMINATION: VITAL SIGNS: At this time include temperature 36.3, pulse 67, respiratory rate 18, blood pressure 142/90. GENERAL: This is a well-developed male patient who appears to be in minimal distress. HEENT: Head normocephalic. Nose and throat clear. NECK: Supple. ABDOMEN: Soft. Bowel sounds present. EXTREMITIES: Examination of the back demonstrates a surgical incision along the lumbar spine. There is some serous drainage. There are Steri-Strips in place. There is no overt separation. NEUROLOGIC: The patient is alert and does move all 4 extremities spontaneously. LABORATORY DATA: Sodium 138, potassium 4.0, chloride 104, CO2 27, BUN 22, creatinine 1.2, glucose 118. White blood cell count 9.0 with hemoglobin of 12.1. CLINICAL IMPRESSION: 1. Surgical incision to the lumbar spine following a spinal fusion. 2. Type 2 diabetes mellitus. 3. History of obstructive sleep apnea. 4. History of atrial fibrillation. RECOMMENDATIONS: At this point in time, we will recommend topical silver alginate followed by an ABD pad to be changed daily. The patient is also being followed by Dr. Boykin, his surgeon. We will continue with local topical care. The wound itself does not appear to be infected at this time. I appreciate being asked to see him in consultation. <ELECTRONICALLY SIGNED> By: Matteo Marrero MD 07/14/20 0803 0753 0115 Matteo Marrero MD /nt
== END 2020-07-11 15:07 | disposition home health service (06) | DRG 552 ==
PROVIDERS: Nurse Practitioner; Nurse Practitioner Family; ADMIT Physical Medicine & Rehabilitation; ATTEND Physical Medicine & Rehabilitation
PROC: 5A09357 Assistance with Respiratory Ventilation, Less than 24 Consecutive Hours, Continuous Positive Airway Pressure (ICD-10-PCS; principal; 2020-07-03)
PROC: 5A09457 Assistance with Respiratory Ventilation, 24-96 Consecutive Hours, Continuous Positive Airway Pressure (ICD-10-PCS; 2020-07-05)
PROC: 5A09357 Assistance with Respiratory Ventilation, Less than 24 Consecutive Hours, Continuous Positive Airway Pressure (ICD-10-PCS; 2020-07-06)
PROC: 5A09457 Assistance with Respiratory Ventilation, 24-96 Consecutive Hours, Continuous Positive Airway Pressure (ICD-10-PCS; 2020-07-08)
DX: M51.16 Intervertebral disc disorders with radiculopathy, lumbar region (principal); I10 Essential (primary) hypertension; E11.42 Type 2 diabetes mellitus with diabetic polyneuropathy; E78.5 Hyperlipidemia, unspecified; L29.9 Pruritus, unspecified; M48.061 Spinal stenosis, lumbar region without neurogenic claudication; I95.81 Postprocedural hypotension; G47.33 Obstructive sleep apnea (adult) (pediatric); I48.91 Unspecified atrial fibrillation; G89.29 Other chronic pain; N40.0 Benign prostatic hyperplasia without lower urinary tract symptoms; K21.9 Gastro-esophageal reflux disease without esophagitis; G31.84 Mild cognitive impairment of uncertain or unknown etiology; Z86.711 Personal history of pulmonary embolism; Z79.01 Long term (current) use of anticoagulants; Z86.718 Personal history of other venous thrombosis and embolism; Z90.49 Acquired absence of other specified parts of digestive tract; Z79.899 Other long term (current) drug therapy; R53.1 Weakness
CPT/HCPCS: 10112

== ENCOUNTER 2020-07-12 05:52 | Emergency (ER) | payer OTHER ==
[~2020-07-12] VITALS: Ht 175.3 cm; Wt 104.3 kg
[~2020-07-12 05:52] MED LIST changes: +FOLIC ACID1 MG PO; +VITAMIN B-12500 MCG PO; +VITAMIN D21250 MC1 PO
[2020-07-12 06:58] LABS: ABSOLUTE NEUTROPHILS 4.6 thou/uL (1.4-8.2); BASOPHILS 0.6 % (0.0-2.0); EOSINOPHILS 7.6 % (0.0-3.0); HEMATOCRIT 34.1 % (42.0-52.0); HEMOGLOBIN 11.4 gm/dL (14.0-18.0); LYMPHOCYTES 19.3 % (24.0-44.0); MCH 30.6 pg (26.0-34.0); MCHC 33.5 g/dL (28.0-37.0); MCV 91.3 fL (80.0-100.0); MONOCYTES 9.4 % (1.0-8.0); PLATELET COUNT 484 thou/uL (150-400); POLYS 63.1 % (36.0-66.0); RBC 3.73 mil/uL (4.50-6.00); RDW 15.9 % (10.5-14.5); WBC 7.4 thou/uL (4.0-11.0)
[2020-07-12 07:07] LABS: CALCIUM 9.1 mg/dL (8.5-10.1); CREATININE 1.3 mg/dL (0.7-1.3); POTASSIUM 4.4 mmol/L (3.5-5.1)
[2020-07-12 08:19] VITALS: BP 122/78
--- NOTE | 2020-07-14 07:09 | EKG ---
[facility] [place] [address] ELECTROCARDIOGRAM REPORT Name: JAIRO GALINDO Room #: DEP [facility]#: [id number] Admission: 07/12/20 Attend Phys: Discharge: 07/12/20 Date of : 47 Report #: [id number] THIS REPORT FOR: cc: [facility] - Clinic physician unknown [facility] - Clinic physician unknown Gaurav Hoang MD [facility] THIS REPORT FOR: //name// [facility] ED Test Date: 2020-07-12 Test Time: 06:00:27 Pat Name: JAIRO GALINDO Department: Room: Gender: M Sales And Business Development Manager: [email or web address] : 1945 Requested By: Armani Giraldo Order Number: [id number] MD: Gaurav Hoang Measurements Intervals Murray Rate: 68 P: 117 OR: 323 QRS: -24 QRSD: 86 T: -9 QT: 381 QTc: 406 Interpretive Statements Sinus rhythm Prolonged OR interval Borderline left axis deviation Abnormal R-wave progression, early transition Borderline T abnormalities, inferior leads Compared to ECG 06/24/2020 16:24:22 No significant changes Electronically Signed On 07-14-2020 7:08:50 NEWS [employer]ERAM[employer] by Gaurav Hoang [email or web address] <ELECTRONICALLY SIGNED> By: Gaurav Hoang MD, FACC 07/14/20 0708 06 06 Gaurav Hoang MD, [facility] /EPI
== END 2020-07-12 08:21 | disposition home or self-care (01) ==
LOC: ER 05:52
PROVIDERS: Emergency Medicine
DX: G89.18 Other acute postprocedural pain (principal); M54.5 Low back pain; D68.318 Other hemorrhagic disorder due to intrinsic circulating anticoagulants, antibodies, or inhibitors; I10 Essential (primary) hypertension; K21.9 Gastro-esophageal reflux disease without esophagitis; E11.9 Type 2 diabetes mellitus without complications; I48.91 Unspecified atrial fibrillation; Z90.49 Acquired absence of other specified parts of digestive tract; Z79.899 Other long term (current) drug therapy; Z79.82 Long term (current) use of aspirin; Z79.84 Long term (current) use of oral hypoglycemic drugs; Z88.8 Allergy status to other drugs, medicaments and biological substances

== ENCOUNTER 2020-07-18 14:46 | Emergency (ER) | payer OTHER ==
[~2020-07-18] VITALS: Ht 175.3 cm; Wt 104.3 kg
[2020-07-18 16:47] VITALS: BP 141/101
== END 2020-07-18 17:11 | disposition home or self-care (01) ==
LOC: ER 14:46
DX: G89.18 Other acute postprocedural pain (principal); M54.9 Dorsalgia, unspecified; G89.29 Other chronic pain; R53.1 Weakness; M54.16 Radiculopathy, lumbar region; I10 Essential (primary) hypertension; K21.9 Gastro-esophageal reflux disease without esophagitis; E11.9 Type 2 diabetes mellitus without complications; I48.91 Unspecified atrial fibrillation; Z90.49 Acquired absence of other specified parts of digestive tract; Z86.73 Personal history of transient ischemic attack (TIA), and cerebral infarction without residual deficits; Z79.899 Other long term (current) drug therapy; Z79.82 Long term (current) use of aspirin; Z88.8 Allergy status to other drugs, medicaments and biological substances

== ENCOUNTER → 2020-07-21 | Outpatient (CLI) | payer OTHER | LOC: LAB 13:55 | DX: Z20.828 Contact with and (suspected) exposure to other viral communicable diseases (principal) ==

== ENCOUNTER 2020-07-29 12:54 | Emergency (ER) | payer OTHER ==
[~2020-07-29] VITALS: Ht 175.3 cm; Wt 102.1 kg
[2020-07-29 16:53] LABS: ABSOLUTE NEUTROPHILS 4.6 thou/uL (1.4-8.2); BASOPHILS 1.2 % (0.0-2.0); EOSINOPHILS 6.9 % (0.0-3.0); HEMATOCRIT 41.4 % (42.0-52.0); HEMOGLOBIN 13.3 gm/dL (14.0-18.0); LYMPHOCYTES 24.1 % (24.0-44.0); MCH 29.2 pg (26.0-34.0); MCHC 32.2 g/dL (28.0-37.0); MCV 90.8 fL (80.0-100.0); MONOCYTES 9.2 % (1.0-8.0); PLATELET COUNT 293 thou/uL (150-400); POLYS 58.6 % (36.0-66.0); RBC 4.56 mil/uL (4.50-6.00); RDW 15.9 % (10.5-14.5); WBC 7.8 thou/uL (4.0-11.0)
[2020-07-29 17:00] LABS: CALCIUM 9.7 mg/dL (8.5-10.1); CREATININE 1.1 mg/dL (0.7-1.3); POTASSIUM 3.5 mmol/L (3.5-5.1)
[2020-07-29] MEDS ORDERED: HYDROCODON-ACE1 EAC7 PO (18:21)
[2020-07-29 18:36] VITALS: BP 124/81
== END 2020-07-29 18:47 | disposition home or self-care (01) ==
LOC: ER 12:54
PROVIDERS: Nurse Practitioner
DX: G89.29 Other chronic pain (principal); M54.5 Low back pain; I10 Essential (primary) hypertension; K21.9 Gastro-esophageal reflux disease without esophagitis; E11.9 Type 2 diabetes mellitus without complications; I48.91 Unspecified atrial fibrillation; Z90.49 Acquired absence of other specified parts of digestive tract; Z79.899 Other long term (current) drug therapy; Z79.82 Long term (current) use of aspirin; Z88.8 Allergy status to other drugs, medicaments and biological substances

== ENCOUNTER → 2020-08-11 | Outpatient (CLI) | payer OTHER ==
[~2020-08-11] MED LIST changes: +HYDROCODON-ACE1 EAC7 PO
== END ==
LOC: RAD 08:53
DX: M43.27 Fusion of spine, lumbosacral region (principal); Z98.890 Other specified postprocedural states

== ENCOUNTER 2020-09-06 16:35 | Emergency (ER) | payer OTHER ==
[~2020-09-06] VITALS: Ht 175.3 cm; Wt 99.8 kg
[2020-09-06] MEDS ORDERED: ULTRAM 50MG TAB50 MG PO (19:49)
[2020-09-06 20:00] VITALS: BP 125/82
== END 2020-09-06 20:00 | disposition home or self-care (01) ==
LOC: ER 16:35
DX: M54.31 Sciatica, right side (principal); E66.9 Obesity, unspecified; I10 Essential (primary) hypertension; K21.9 Gastro-esophageal reflux disease without esophagitis; E11.9 Type 2 diabetes mellitus without complications; Z79.82 Long term (current) use of aspirin; Z79.899 Other long term (current) drug therapy; Z86.718 Personal history of other venous thrombosis and embolism; Z86.711 Personal history of pulmonary embolism